=== PATIENT | female | born 1965 | race Caucasian/White ===

== ENCOUNTER 2018-10-16 19:45 | Observation (INO) ==
[2018-10-16 20:45] LABS: Basophils # (auto) 0.03 K/uL (0-0.2); Basophils % (auto) 0.4 %; Eosinophils # (auto) 0.19 K/uL (0-0.5); Eosinophils % (auto) 2.5 %; Hematocrit (blood only) 42.9 % (37-47); Hemoglobin 14.9 g/dL (12.0-16.0); Immature Granulocytes # (auto) 0.01 K/uL (0.00-0.02); Immature Granulocytes % (auto) 0.1 %; Lymphocytes # (auto) 2.71 K/uL (1.2-3.4); Lymphocytes % (auto) 35.7 %; Mean Corpuscular Hgb Conc 34.7 g/dL (32-36); Mean Corpuscular Volume 88.6 fL (80-100); Mean Platelet Volume 11.2 fL (7.4-10.4); Monocytes # (auto) 0.62 K/uL (0.11-0.59); Monocytes % (auto) 8.2 %; Neutrophils # (auto) 4.04 K/uL (1.4-6.5); Neutrophils % (auto) 53.1 %; Platelet Count 248 K/uL (130-400); RDW Coefficient of Variation 12.8 % (11.5-14.5); Red Blood Count 4.84 M/uL (4.2-5.4)
[2018-10-16 20:48] LABS: D Dimer 220 ug/L FEU (0-500)
[2018-10-16 20:53] LABS: Alanine Aminotransferase 44 U/L (12-78); Albumin Level 4.4 gm/dl (3.4-5.0); Aspartate Aminotransferase 20 U/L (15-37); BUN Creatinine Ratio 13.9 (10-20); Blood Urea Nitrogen 10 mg/dl (7-18); Calcium 9.7 mg/dl (8.5-10.1); Carbon Dioxide 26 mmol/L (21-32); Chloride 105 mmol/L (98-107); Cholesterol 224 mg/dl (0-200); Creatinine Clr Calc Pharmacy 111.8 ml/min; Est GFR (African American) 109.7; Est GFR (Non-African American) 94.7; Glucose 93 mg/dl (70-99); Magnesium 2.4 mg/dl (1.8-2.4); Potassium 3.6 mmol/L (3.5-5.1); Sodium 140 mmol/L (136-145); Triglycerides 125 mg/dl (0-150); VLDL Cholesterol 25 mg/dl
--- NOTE | 2018-10-16 21:01 | XRay Report ---
XR chest 1V portable CLINICAL HISTORY: 53 years-old Female presenting with sob. TECHNIQUE: Portable upright AP view of the chest was obtained. COMPARISON: Chest CT from 2012. FINDINGS: Atherosclerosis of the aortic arch. Cardiac silhouette borderline enlarged. Minimal right basilar opa city may be present. No large effusion or pneumothorax. Osseous structures normal. Upper abdomen norm al. IMPRESSION: Evaluation degraded by body habitus and portable technique. This mildly limits diagnostic sensitivity the exam. 1. Borderline cardiomegaly. 2. Possible minimal right basilar atelectasis. Electronically signed by: Abraham Stokes M.D. 10/16/2018 9:00 PM
[2018-10-16 21:02] LABS: Albumin Globulin Ratio 1.5 (0.9-2); Alkaline Phosphatase 81 U/L (45-117); Bilirubin,Total 0.4 mg/dl (0.2-1); Chol HDL Ratio 5; HDL Cholesterol 46 mg/dl; LDL Cholesterol Calculated 153 mg/dl; NT Pro B Type Natriuretic Pept 42 pg/ml (0-900); Total Protein 7.4 gm/dl (6.4-8.2); Troponin I < 0.015 ng/ml (0-0.045)
[2018-10-16 21:35] LABS: Lyme Ab IgG w/WB Rflx Negative (Negative); Lyme Ab IgM w/WB Rflx Negative (Negative)
[2018-10-16] MEDS ORDERED: OPTIRAY 320 125ml IV PRN (21:58)
--- NOTE | 2018-10-16 22:26 | CT Scan Report ---
CT angio chest PE protocol CLINICAL HISTORY: 53 years-old Female presenting with shortness of breath, clinical concern for pulmo nary embolus. TECHNIQUE: Multidetector CT angiography of the chest was performed after administration of intravenou s contrast. 3-D volumetric and/or maximum intensity projection (MIP) images were subsequently reconst ructed for review. IV contrast: 116 mL of Optiray 320. One or more dose lowering techniques were used consistent with the principles of ALARA (as low as reasonably achievable), including automatic expos ure control, mA or kV adjustment to individual patient size, and/or use of iterative reconstruction. COMPARISON: 02/05/2012. CT DOSE (mGy.cm): The estimated cumulative dose is 543.64 mGycm. FINDINGS: Wallpaper Hanger Helper topogram: Unremarkable. Pulmonary vasculature: The study is adequate for assessment of the pulmonary vascular tree. No filling defect within the pul monary arteries to suggest embolus. Main pulmonary artery is not enlarged. No flattening of the inter ventricular septum. No intracardiac filling defect. No reflux of contrast into the hepatic veins. Remaining chest: Soft tissues: Normal thyroid and thoracic inlet. No axillary, supraclavicular, mediastinal, or hilar lymphadenopathy. Normal aorta. Mild multichamber enlargement of the heart. No pericardial or pleural effusion. Hepatic steatosis. Lungs and airways: No pneumothorax. Central airways patent. Pulmonary arteries are not significantly enlarged relative to adjacent bronchi. No interlobular septal thickening. Scattered bandlike opacitie s at the lung bases in the right middle lobe and lingula as well as in the lower lobes dependently, l ikely atelectasis. No other focal nodule or infiltrate. Musculoskeletal: Degenerative changes of the spine. IMPRESSION: 1. No evidence of pulmonary embolus. 2. Mild cardiomegaly. 3. Bibasilar atelectasis. No other evidence of acute intrathoracic pathology. Electronically signed by: Abraham Stokes M.D. 10/16/2018 10:25 PM
[2018-10-16] MEDS ORDERED: ALUMINUM/MAGNESIUM SUSP 30 ML UDC PO STA (22:34)
[2018-10-16] MEDS ORDERED: FAMOTIDINE 20MG/5ML IV PUSH IV STA (22:34)
--- NOTE | 2018-10-16 22:49 | Emergency Department Note ---
Entered by Sabina Mcdowell acting as a scribe for History of Present Illness General Chief complaint: Chest Pain Stated complaint: CHEST PAIN Time Seen by Provider: 10/16/18 19:53 Source: patient History of Present Illness Provider complaint: Chest Pain Onset (ago): week(s) 3 Location: chest Radiation: extremity (Left arm) Quality: + burning and + other (Pressure) Exacerbated By: + movement Associated symptoms: + shortness of breath and + other (Fatigued, calve pain) The patient is a 53 year old female who presents to the Emergency Room with complaints of burning chest pain that began 3 weeks ago. The patient states that she was at a doctors appointment and began feeling pressure in her left chest and shoulder that she described as feeling like "congestion." The patient reports that the pain is exacerbated by movement. The patient states that she has been experiencing shortness of breath, fatigue, and calve pain. The patient mentioned that her activity levels have been down and recently walking around the block makes her "winded." The patient reports that she has gained about 100 pounds in the last 13 years due to a sedentary lifestyle. The patient states that she has high anxiety but has never gotten shortness of breath this severe before. No recent travel, no recent illness. No new medications. Home Medications Home Medications Medication Instructions Recorded Confirmed Type escitalopram oxalate [Lexapro] 10 mg PO DAILY 10/16/18 10/16/18 History losartan-hydrochlorothiazide 1 tab PO DAILY 10/16/18 10/16/18 History naproxen sodium [Aleve] 220 - 440 mg PO DIRECTED PRN 10/16/18 10/16/18 History Allergies Allergy/AdvReac Type Severity Reaction Status Date / Time adhesive Allergy Intermediate SKIN Verified 10/16/18 20:53 IRRITATION, RASH, TEARS SKIN latex Allergy Intermediate SKIN Verified 10/16/18 20:50 IRRITATION, RASH, TEARS SKIN Past Med/Surg History Medical History No pertinent past medical history Family History Other Heart disease Social History Preferred Language: Irish Communication Ability: Effective 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 and A total of 10 systems reviewed and were otherwise negative Physical Exam Vital Signs Vital Signs - 24 hr 10/16/18 19:53 10/16/18 19:58 10/16/18 20:22 Temperature 36.8 C Temperature Source Oral Sepsis Recent Fever Within 48 Hours No Sepsis New/Unexplained Change in Mental Status No Sepsis Action Taken by Nursing No Action Required Pulse Rate 72 70 Pulse Rate [Apical] 69 80 Pulse Rhythm Regular Pulse Rhythm [Apical] Regular Regular Pulse Strength [Apical] Respiratory Rate 16 18 16 Respiratory Effort / Characteristics Non-Labored Spontaneous Non-Labored Spontaneous Non-Labored Spontaneous Respiratory Depth Normal Normal Normal Respiratory Pattern Regular Regular Blood Pressure 169/109 H Blood Pressure [Right Arm] 147/95 H 147/95 H Blood Pressure Mean 129 Blood Pressure Mean [Right Arm] 112 112 Blood Pressure Position [Right Arm] Pulse Oximetry 97 96 100 Oxygen Delivery Method Room Air Room Air 10/16/18 22:06 Temperature Temperature Source Sepsis Recent Fever Within 48 Hours Sepsis New/Unexplained Change in Mental Status Sepsis Action Taken by Nursing Pulse Rate Pulse Rate [Apical] 63 Pulse Rhythm Pulse Rhythm [Apical] Regular Pulse Strength [Apical] Normal Respiratory Rate 18 Respiratory Effort / Characteristics Non-Labored Spontaneous Respiratory Depth Normal Respiratory Pattern Regular Blood Pressure Blood Pressure [Right Arm] 139/93 Blood Pressure Mean Blood Pressure Mean [Right Arm] 108 Blood Pressure Position [Right Arm] Sitting Pulse Oximetry 95 Oxygen Delivery Method Room Air GENERAL: alert, uncomfortable-appearing, well nourished, no distress, non-toxic. Obese. EYE EXAM: normal conjunctiva, PERRL and EOM's grossly intact OROPHARYNX: no exudate, no erythema, lips, buccal mucosa, and tongue normal and mucous membranes are moist NECK: supple, no nuchal rigidity, no adenopathy, non-tender LUNGS: Clear to auscultation. Normal chest wall mechanics, no w/r/r HEART: no murmurs, S1 normal and S2 normal ABDOMEN: abdomen soft, non-tender, normo-active bowel sounds, no masses, no rebound or guarding. BACK: Back is symmetrical on inspection and there is no deformity, no midline tenderness, no CVA tenderness. SKIN: no rashes and no bruising UPPER EXTREMITIES: upper extremities are grossly normal. FROM, nml pulses b/l. LOWER EXTREMITIES: No pitting edema. FROM, nml pulses b/l. NEURO EXAM: Normal sensorium, cranial nerves II-XII grossly intact, normal speech, no gross weakness of arms, no gross weakness of legs. Course 1958: Past medical records reviewed. The patient was evaluated in room A03. A complete history and physical exam was performed. 2234: I reevaluated and discussed the test results with the patient. The patient understands and is in agreement with verbalized plan. 2248: I spoke with Dr. Curtis's about the patient's case and he will accept the patient for further evaluation. Administered Medications Discontinued Medications Al Hydrox/Mg Hydrox/Simethicone (Maalox) 15 ml PO NOW STA Stop: 10/16/18 22:35 Last Admin: 10/16/18 22:48 Dose: 15 ml Documented by: [id number] Aspirin (Ecotrin Ectab) 81 mg PO QAM [facility] Stop: 11/16/18 08:59 Last Admin: 10/17/18 13:25 Dose: 81 mg Documented by: [id number] Atropine Sulfate (Atropine Sulfate) Confirm Administered Dose 1 mg IV .STK-MED ONE Stop: 10/17/18 08:54 Last Admin: 10/17/18 09:42 Dose: 0.5 mg Documented by: [id number] Dobutamine HCl (Dobutrex) Confirm Administered Dose 250 mg IV .STK-MED ONE Stop: 10/17/18 08:54 Last Admin: 10/17/18 09:36 Dose: Not Given Documented by: [id number] Enoxaparin Sodium (Lovenox) 40 mg SQ QAM [facility] Stop: 11/16/18 08:59 Last Admin: 10/17/18 13:13 Dose: Not Given Documented by: [id number] Escitalopram Oxalate (Lexapro Tab) 10 mg PO DAILY NERY Stop: 11/16/18 08:59 Last Admin: 10/17/18 13:25 Dose: 10 mg Documented by: [id number] Famotidine (Pepcid 20mg Iv Push) 20 mg IV ONE STA Stop: 10/16/18 22:35 Last Admin: 10/16/18 22:48 Dose: 20 mg Documented by: [id number] Fentanyl Citrate (Fentanyl Citrate) Confirm Administered Dose 100 mcg .ROUTE .STK-MED ONE Stop: 10/17/18 11:52 Last Admin: 10/17/18 14:50 Dose: Not Given Documented by: [id number] Heparin Sodium (Porcine) (Heparin Iv Bolus (Side Framer Use Only)) Confirm Administered Dose 10,000 units .ROUTE .STK-MED ONE Stop: 10/17/18 11:51 Last Admin: 10/17/18 14:49 Dose: Not Given Documented by: [id number] Heparin Sodium/Sodium Chloride (Heparin/Nss 1000 Unit/500ml Flush Bag) Confirm Administered Dose 3,000 units IV .STK-MED ONE Stop: 10/17/18 11:51 Last Admin: 10/17/18 14:49 Dose: Not Given Documented by: [id number] Dextrose/Lactated Ringer's (D5w And Lactated Ringers) 1,000 mls @ 40 mls/hr IV .Q24H NERY Stop: 11/16/18 01:05 Last Infusion: 10/17/18 14:57 Dose: 0 mls/hr Documented by: [id number] Infusion: 10/17/18 08:40 Dose: 0 mls/hr Documented by: [id number] Admin: 10/17/18 01:51 Dose: 40 mls/hr Documented by: [id number] Sodium Chloride (Nss 1000ml) 1,000 mls @ 100 mls/hr IV .Q10H NERY Stop: 10/17/18 17:59 Last Admin: 10/17/18 13:14 Dose: 100 mls/hr Documented by: [id number] Ioversol (Optiray 320 125ml) 116 ml IV ONCE PRN PRN Reason: Interaction Checking Stop: 10/20/18 21:57 Last Admin: 10/16/18 21:59 Dose: 116 ml Documented by: [id number] Losartan Potassium (Cozaar) 50 mg PO QAM NERY Stop: 11/16/18 08:59 Last Admin: 10/17/18 13:25 Dose: 50 mg Documented by: [id number] Metoprolol Tartrate (Lopressor) Confirm Administered Dose 10 mg IV .STK-MED ONE Stop: 10/17/18 08:54 Last Admin: 10/17/18 10:31 Dose: Not Given Documented by: [id number] Midazolam HCl (Versed) Confirm Administered Dose 2 mg .ROUTE .STK-MED ONE Stop: 10/17/18 11:52 Last Admin: 10/17/18 14:52 Dose: Not Given Documented by: [id number] Nicardipine HCl (Cardene) Confirm Administered Dose 25 mg .ROUTE .STK-MED ONE Stop: 10/17/18 11:51 Last Admin: 10/17/18 14:48 Dose: Not Given Documented by: [id number] Nitroglycerin (Nitrostat) 0.4 mg SL UD PRN PRN Reason: Chest Pain Stop: 11/16/18 01:05 Last Admin: 10/17/18 09:57 Dose: 0.4 mg Documented by: [id number] Nitroglycerin (Nitrostat) Confirm Administered Dose 0.4 mg .ROUTE .STK-MED ONE Stop: 10/17/18 09:53 Last Admin: 10/17/18 14:48 Dose: Not Given Documented by: [id number] Nitroglycerin/Dextrose (Nitroglycerin/D5w 100 Mcg/Ml 20ml Syringe) Confirm Administered Dose 2,000 mcg .ROUTE .STK-MED ONE Stop: 10/17/18 11:52 Last Admin: 10/17/18 14:50 Dose: Not Given Documented by: [id number] Perflutren Lipid Microsphere (Definity) 2 ml IV ONCE ONE Stop: 10/17/18 10:30 Last Admin: 10/17/18 10:29 Dose: 2 ml Documented by: [id number] Medical Decision Making Differential Diagnosis Differential diagnosis: Etiologies such as infections, reactive airway disease, COPD, pneumonia, pleural effusion, pulmonary edema, ARDS, pneumothorax, CHF, cardiac ischemia, cardiac tamponade, dysrhythmia, anemia, pulmonary embolism, musculoskeletal, gastrointestinal process, as well as others were entertained. Medical Records Attestation: I reviewed the patient's medical records. Home Medications Current Medication List: was personally reviewed by me Laboratory Data Attestation: I reviewed the patient's lab results. Result diagrams: 10/17/18 04:01 10/16/18 19:49 Lab Results 10/16/18 10/16/18 10/16/18 Range/Units 19:49 19:49 19:49 WBC 7.60 (4.8-10.8) K/uL RBC 4.84 (4.2-5.4) M/uL Hgb 14.9 (12.0-16.0) g/dL Hct 42.9 (37-47) % MCV 88.6 (80-100) fL MCH 30.8 (25-34) pg MCHC 34.7 (32-36) g/dL RDW Std Deviation 41.0 (36.4-46.3) fL RDW Coeff of [place]ore[place] 12.8 (11.5-14.5) % Plt Count 248 (130-400) K/uL MPV 11.2 H (7.4-10.4) fL Immature Gran % (Auto) 0.1 % Neut % (Auto) 53.1 % Lymph % (Auto) 35.7 % Bailey % (Auto) 8.2 % Eos % (Auto) 2.5 % Baso % (Auto) 0.4 % Immature Gran # (Auto) 0.01 (0.00-0.02) K/uL Neut # (Auto) 4.04 (1.4-6.5) K/uL Lymph # (Auto) 2.71 (1.2-3.4) K/uL Bailey # (Auto) 0.62 H (0.11-0.59) K/uL Eos # (Auto) 0.19 (0-0.5) K/uL Baso # (Auto) 0.03 (0-0.2) K/uL D-Dimer 220 (0-500) ug/L FEU Sodium 140 (136-145) mmol/L Potassium 3.6 (3.5-5.1) mmol/L Chloride 105 (98-107) mmol/L Carbon Dioxide 26 (21-32) mmol/L Anion Gap 9.0 (3-11) BUN 10 (7-18) mg/dl Creatinine 0.73 (0.6-1.2) mg/dl Est Cr Clr Drug Dosing 111.8 ml/min Est GFR ( Amer) 109.7 Est GFR (Non-Af Amer) 94.7 BUN/Creatinine Ratio 13.9 (10-20) Glucose 93 (70-99) mg/dl Calcium 9.7 (8.5-10.1) mg/dl Magnesium 2.4 (1.8-2.4) mg/dl Total Bilirubin 0.4 (0.2-1) mg/dl AST 20 (15-37) U/L ALT 44 (12-78) U/L Alkaline Phosphatase 81 (45-117) U/L Troponin I < 0.015 (0-0.045) ng/ml NT-Pro-B Natriuret Pep 42 (0-900) pg/ml Total Protein 7.4 (6.4-8.2) gm/dl Albumin 4.4 (3.4-5.0) gm/dl Globulin 3.0 (2.5-4.0) gm/dl Albumin/Globulin Ratio 1.5 (0.9-2) Triglycerides 125 (0-150) mg/dl Cholesterol 224 H (0-200) mg/dl LDL Cholesterol, Calc 153 mg/dl VLDL Cholesterol, Calc 25 mg/dl HDL Cholesterol 46 mg/dl Cholesterol/HDL Ratio 5 Lipase 116 (73-393) U/L TSH 2.990 (0.300-4.500) uIu/ml Lyme Disease IgG Ab (Negative) Lyme Disease IgM Ab (Negative) 10/16/18 10/16/18 Range/Units 19:49 23:12 WBC (4.8-10.8) K/uL RBC (4.2-5.4) M/uL Hgb (12.0-16.0) g/dL Hct (37-47) % MCV (80-100) fL MCH (25-34) pg MCHC (32-36) g/dL RDW Std Deviation (36.4-46.3) fL RDW Coeff of Lorena (11.5-14.5) % Plt Count (130-400) K/uL MPV (7.4-10.4) fL Immature Gran % (Auto) % Neut % (Auto) % Lymph % (Auto) % Bailey % (Auto) % Eos % (Auto) % Baso % (Auto) % Immature Gran # (Auto) (0.00-0.02) K/uL Neut # (Auto) (1.4-6.5) K/uL Lymph # (Auto) (1.2-3.4) K/uL Bailey # (Auto) (0.11-0.59) K/uL Eos # (Auto) (0-0.5) K/uL Baso # (Auto) (0-0.2) K/uL D-Dimer (0-500) ug/L FEU Sodium (136-145) mmol/L Potassium (3.5-5.1) mmol/L Chloride (98-107) mmol/L Carbon Dioxide (21-32) mmol/L Anion Gap (3-11) BUN (7-18) mg/dl Creatinine (0.6-1.2) mg/dl Est Cr Clr Drug Dosing ml/min Est GFR ( Amer) Est GFR (Non-Af Amer) BUN/Creatinine Ratio (10-20) Glucose (70-99) mg/dl Calcium (8.5-10.1) mg/dl Magnesium (1.8-2.4) mg/dl Total Bilirubin (0.2-1) mg/dl AST (15-37) U/L ALT (12-78) U/L Alkaline Phosphatase (45-117) U/L Troponin I < 0.015 (0-0.045) ng/ml NT-Pro-B Natriuret Pep (0-900) pg/ml Total Protein (6.4-8.2) gm/dl Albumin (3.4-5.0) gm/dl Globulin (2.5-4.0) gm/dl Albumin/Globulin Ratio (0.9-2) Triglycerides (0-150) mg/dl Cholesterol (0-200) mg/dl LDL Cholesterol, Calc mg/dl VLDL Cholesterol, Calc mg/dl HDL Cholesterol mg/dl Cholesterol/HDL Ratio Lipase (73-393) U/L TSH (0.300-4.500) uIu/ml Lyme Disease IgG Ab Negative (Negative) Lyme Disease IgM Ab Negative (Negative) Imaging Data Radiologist's Impression: Radiology results as stated below per my review and the radiologist's interpretation: XR chest 1V portable CLINICAL HISTORY: 53 years-old Female presenting with sob. TECHNIQUE: Portable upright AP view of the chest was obtained. COMPARISON: Chest CT from 2012. FINDINGS: Atherosclerosis of the aortic arch. Cardiac silhouette borderline enlarged. Minimal right basilar opacity may be present. No large effusion or pneumothorax. Osseous structures normal. Upper abdomen normal. IMPRESSION: Evaluation degraded by body habitus and portable technique. This mildly limits diagnostic sensitivity the exam. 1. Borderline cardiomegaly. 2. Possible minimal right basilar atelectasis. Electronically signed by: Abraham Stokes M.D. 10/16/2018 9:[address] angio chest PE protocol CLINICAL HISTORY: 53 years-old Female presenting with shortness of breath, clinical concern for pulmonary embolus. TECHNIQUE: Multidetector CT angiography of the chest was performed after admi nistration of intravenous contrast. 3-D volumetric and/or maximum intensity projection (MIP) images were subsequently reconstructed for review. IV contrast: 116 mL of Optiray 320. One or more dose lowering techniques were used consistent with the principles of ALARA (as low as reasonably achievable), including automatic exposure control, mA or kV adjustment to individual patient size, and/or use of iterative reconstruction. COMPARISON: 02/05/2012. CT DOSE (mGy.cm): The estimated cumulative dose is 543.64 mGycm. FINDINGS: Pediatric Immunologist topogram: Unremarkable. Pulmonary vasculature: The study is adequate for assessment of the pulmonary vascular tree. No filling defect within the pulmonary arteries to suggest embolus. Main pulmonary artery is not enlarged. No flattening of the interventricular septum. No intracardiac filling defect. No reflux of contrast into the hepatic veins. Remaining chest: Soft tissues: Normal thyroid and thoracic inlet. No axillary, supraclavicular, mediastinal, or hilar lymphadenopathy. Normal aorta. Mild multichamber enlargement of the heart. No pericardial or pleural effusion. Hepatic steatosis. Lungs and airways: No pneumothorax. Central airways patent. Pulmonary arteries are not significantly enlarged relative to adjacent bronchi. No interlobular septal thickening. Scattered bandlike opacities at the lung bases in the right middle lobe and lingula as well as in the lower lobes dependently, likely atelectasis. No other focal nodule or infiltrate. Musculoskeletal: Degenerative changes of the spine. IMPRESSION: 1. No evidence of pulmonary embolus. 2. Mild cardiomegaly. 3. Bibasilar atelectasis. No other evidence of acute intrathoracic pathology. Electronically signed by: Abraham Stokes M.D. 10/16/2018 10:25 PM ECG Data Attestation: I personally reviewed and interpreted this ECG as follows: Indication: SOB/dyspnea Rate (beats per minute): 65 Rhythm: normal sinus Findings: + other (Normal axis, normal intervals); no PVC and no acute ischemic change Blood Pressure Blood Pressure Findings: Elevated blood pressure Blood Pressure Disposition: Referred to patients primary care provider MDM Narrative Heart score 4 Patient here uncomfortable appearing with concerning story for exertional symptoms. Patient also with significant past family history of coronary artery disease. Patient's labs and imaging here are reassuring and patient was hemodynamically stable throughout. Troponin negative and EKG did not show any acute changes. However, given patient's risk factors and family history, case was discussed with hospitalist for additional evaluation and management. Patient symptoms were improved here with additional medications. No evidence of hypertensive urgency/emergency. No evidence of PE or other acute vascular etiology. No evidence of infectious etiology. I do not suspect perforation or GI bleed. Impression & Plan Atypical chest pain, Dyspnea on exertion, Fatigue Discharge Plan Visit Data *Final* Discharge Date/Time: 10/17/18 00:41 Chief Complaint: Chest Pain Stated Complaint: CHEST PAIN ED Provider: Julia Fuentes Discharge Problem: Atypical chest pain, Dyspnea on exertion, Fatigue Patient Disposition: Admitted As Inpatient Condition: Good Discharge Instructions Interventions: ED Discharge Assessment Last Done: 10/17/18 00:41 Discharge Problem: Fatigue Qualifiers: Fatigue type: due to excessive exertion Encounter type: initial encounter Qualified Code(s): T73.3XXA - Exhaustion due to excessive exertion, initial encounter The scribe's documentation has been prepared under my direction and personally reviewed by me in its entirety. I confirm that the note above accurately reflects all work, treatment, procedures, and medical decision making performed by me.
--- NOTE | 2018-10-16 23:22 | History & Physical Report ---
Date of Service October 16, 2018 Assessment & Plan (1) Chest pain: ? Secondary to L shoulder pathology Anxiety contributory Rule out ACS given risk factors and exertional S OB symptoms hypertension, slightly elevated upon arrival at the ER Hyperlipidemia, currently not on statin Rx as per patient preference as per records anxiety/mood disorder past tobacco abuse OBS PCU Left shoulder x-ray Aspirin for CAD prevention until ACS ruled out Dobutamine stress echo if a.m. troponin within normal limits DVT prophylaxis. Lovenox subcu Full code. History of Present Illness Chief Complaint: Chest pain, S OB Primary Care Provider: Leander Nuñez MD History obtained from patient, family, and records. Medical history significant for hypertension, hyperlipidemia, anxiety/mood disorder, RLS, past tobacco abuse. 3 weeks history of intermittent substernal discomfort occasionally going to the left shoulder with some shortness of breath on exertion. Somewhat worsened with movement. No unusual cough symptoms. Different from usual heartburn episodes. Patient thinks anxiety from knee issues causing chest pain. Patient not sure if nitroglycerin worked for her chest pain. Patient currently comfortable at the emergency room. 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 Allergies Allergy/AdvReac Type Severity Reaction Status Date / Time adhesive Allergy Intermediate SKIN Verified 10/16/18 20:53 IRRITATION, RASH, TEARS SKIN latex Allergy Intermediate SKIN Verified 10/16/18 20:50 IRRITATION, RASH, TEARS SKIN Home Medications Home Medications Medication Instructions Recorded Confirmed Type escitalopram oxalate [Lexapro] 10 mg PO DAILY 10/16/18 10/16/18 History losartan-hydrochlorothiazide 1 tab PO DAILY 10/16/18 10/16/18 History naproxen sodium [Aleve] 220 - 440 mg PO DIRECTED PRN 10/16/18 10/16/18 History Past Med/Surg History Medical History No pertinent past medical history Family History Other Heart disease Social History Preferred Language: Armenian Communication Ability: Effective Facilities Flight Check Pilot Required: No Current Living Situation: Spouse Other Information That Helps Us Care for You: No Feels Safe at Home: No Is there a partner from a previous relationship who is making you feel unsafe now?: No Any Concerns about Your Family Situation: No Would You Like to Speak to Someone About Your Situation: No Safety Concerns: Feels Safe At This Time Smoking Status: Former smoker Second Hand Exposure: Yes ; Hx Alcohol Use: No Hx Substance Use: No Review of Systems Review of Systems: As per HPI, all 10 systems reviewed, all other ROS negative Physical Exam Physical Exam: GENERAL: Comfortable, slightly anxious, obese, no respiratory distress SKIN: Normal color, warm HEENT: [place] palpebral conjunctivae, no ptosis, dry buccal mucosa NECK : Supple, short neck, no tenderness CHEST : CTA, no tenderness HEART : RRR, no obvious murmurs ABDOMEN: Some distention, nontender EXTREMITIES : Chronic LE swelling, chronic bilateral knee tenderness; minimal left shoulder tenderness, no other conspicuous deformities noted NEUROLOGIC : Coherent, no facial asymmetry, no other gross focality Results & Data Vital Signs (Past 12 Hours) Vital Signs Temp Pulse Pulse Resp BP BP Pulse Ox 10/16/18 22:48 77 16 143/103 H 96 10/16/18 22:06 63 18 139/93 95 10/16/18 20:22 80 16 147/95 H 100 10/16/18 19:58 70 69 18 147/95 H 96 10/16/18 19:53 36.8 C 72 16 169/109 H 97 Laboratory Results Laboratory Results WBC 7.60 K/uL (4.8-10.8) 10/16/18 19:49 RBC 4.84 M/uL (4.2-5.4) 10/16/18 19:49 Hgb 14.9 g/dL (12.0-16.0) 10/16/18 19:49 Hct 42.9 % (37-47) 10/16/18 19:49 MCV 88.6 fL (80-100) 10/16/18 19:49 MCH 30.8 pg (25-34) 10/16/18 19:49 MCHC 34.7 g/dL (32-36) 10/16/18 19:49 RDW Std Deviation 41.0 fL (36.4-46.3) 10/16/18 19:49 RDW Coeff of [place] 12.8 % (11.5-14.5) 10/16/18 19:49 Plt Count 248 K/uL (130-400) 10/16/18 19:49 MPV 11.2 fL (7.4-10.4) H 10/16/18 19:49 Immature Gran % (Auto) 0.1 % 10/16/18 19:49 Neut % (Auto) 53.1 % 10/16/18 19:49 Lymph % (Auto) 35.7 % 10/16/18 19:49 [place] % (Auto) 8.2 % 10/16/18 19:49 Eos % (Auto) 2.5 % 10/16/18 19:49 Baso % (Auto) 0.4 % 10/16/18 19:49 Immature Gran # (Auto) 0.01 K/uL (0.00-0.02) 10/16/18 19:49 Neut # (Auto) 4.04 K/uL (1.4-6.5) 10/16/18 19:49 Lymph # (Auto) 2.71 K/uL (1.2-3.4) 10/16/18 19:49 [place] # (Auto) 0.62 K/uL (0.11-0.59) H 10/16/18 19:49 Eos # (Auto) 0.19 K/uL (0-0.5) 10/16/18 19:49 Baso # (Auto) 0.03 K/uL (0-0.2) 10/16/18 19:49 D-Dimer 220 ug/L FEU (0-500) 10/16/18 19:49 Sodium 140 mmol/L (136-145) 10/16/18 19:49 Potassium 3.6 mmol/L (3.5-5.1) 10/16/18 19:49 Chloride 105 mmol/L (98-107) 10/16/18 19:49 Carbon Dioxide 26 mmol/L (21-32) 10/16/18 19:49 Anion Gap 9.0 (3-11) 10/16/18 19:49 BUN 10 mg/dl (7-18) 10/16/18 19:49 Creatinine 0.73 mg/dl (0.6-1.2) 10/16/18 19:49 Est Cr Clr Drug Dosing 111.8 ml/min 10/16/18 19:49 Est GFR ( Amer) 109.7 10/16/18 19:49 Est GFR (Non-Af Amer) 94.7 10/16/18 19:49 BUN/Creatinine Ratio 13.9 (10-20) 10/16/18 19:49 Glucose 93 mg/dl (70-99) 10/16/18 19:49 Calcium 9.7 mg/dl (8.5-10.1) 10/16/18 19:49 Magnesium 2.4 mg/dl (1.8-2.4) 10/16/18 19:49 Total Bilirubin 0.4 mg/dl (0.2-1) 10/16/18 19:49 AST 20 U/L (15-37) 10/16/18 19:49 ALT 44 U/L (12-78) 10/16/18 19:49 Alkaline Phosphatase 81 U/L (45-117) 10/16/18 19:49 Troponin I < 0.015 ng/ml (0-0.045) 10/16/18 19:49 NT-Pro-B Natriuret Pep 42 pg/ml (0-900) 10/16/18 19:49 Total Protein 7.4 gm/dl (6.4-8.2) 10/16/18 19:49 Albumin 4.4 gm/dl (3.4-5.0) 10/16/18 19:49 Globulin 3.0 gm/dl (2.5-4.0) 10/16/18 19:49 Albumin/Globulin Ratio 1.5 (0.9-2) 10/16/18 19:49 Triglycerides 125 mg/dl (0-150) 10/16/18 19:49 Cholesterol 224 mg/dl (0-200) H 10/16/18 19:49 LDL Cholesterol, Calc 153 mg/dl 10/16/18 19:49 VLDL Cholesterol, Calc 25 mg/dl 10/16/18 19:49 HDL Cholesterol 46 mg/dl 10/16/18 19:49 Cholesterol/HDL Ratio 5 10/16/18 19:49 Lipase 116 U/L (73-393) 10/16/18 19:49 TSH 2.990 uIu/ml (0.300-4.500) 10/16/18 19:49 Lyme Disease IgG Ab Negative (Negative) 10/16/18 19:49 Lyme Disease IgM Ab Negative (Negative) 10/16/18 19:[address] chest: 1. No evidence of pulmonary embolus. 2. Mild cardiomegaly. 3. Bibasilar atelectasis. No other evidence of acute intrathoracic pathology. EKG as per my interpretation rate 65, NSR, normal axis, incomplete RBBB, T wave flattening septal leads
[2018-10-17] MEDS ORDERED: NITROGLYCERIN SL 0.4 MG/TAB TAB SL PRN (01:06)
[2018-10-17] MEDS ORDERED: TRAMADOL HCL 50 MG TABLET PO PRN (01:06)
[2018-10-17] MEDS ORDERED: D5W AND LACTATED RINGERS 1,000 ML IV SCH (01:06)
[2018-10-17] MEDS ORDERED: LORazepam 0.5 MG/1 ML VIAL IV PRN (01:06)
[2018-10-17] MEDS ORDERED: MoRPHine SULFATE 4 MG/ML 1 ML CARP\\VIAL IV PRN (01:06)
[2018-10-17] MEDS ORDERED: ACETAMINOPHEN 325 MG TAB PO PRN (01:06)
[2018-10-17] MEDS ORDERED: PROMETHAZINE HCL 12.5 MG in SODIUM CHLORIDE 0.9% 50 ML IV PRN (01:06)
[2018-10-17 04:30] LABS: Basophils # (auto) 0.03 K/uL (0-0.2); Basophils % (auto) 0.4 %; Eosinophils # (auto) 0.19 K/uL (0-0.5); Eosinophils % (auto) 2.6 %; Hematocrit (blood only) 40.1 % (37-47); Hemoglobin 14.1 g/dL (12.0-16.0); Immature Granulocytes # (auto) 0.03 K/uL (0.00-0.02); Immature Granulocytes % (auto) 0.4 %; Lymphocytes # (auto) 2.44 K/uL (1.2-3.4); Lymphocytes % (auto) 33.3 %; Mean Corpuscular Hgb Conc 35.2 g/dL (32-36); Mean Corpuscular Volume 89.5 fL (80-100); Mean Platelet Volume 10.9 fL (7.4-10.4); Monocytes # (auto) 0.63 K/uL (0.11-0.59); Monocytes % (auto) 8.6 %; Neutrophils % (auto) 54.7 %; Platelet Count 198 K/uL (130-400); RDW Coefficient of Variation 12.9 % (11.5-14.5); RDW Standard Deviation 41.5 fL (36.4-46.3); Red Blood Count 4.48 M/uL (4.2-5.4); White Blood Count 7.32 K/uL (4.8-10.8)
[2018-10-17 04:39] LABS: Partial Thromboplastin Ratio 0.9; Partial Thromboplastin Time 24.1 Seconds (21.0-31.0)
--- NOTE | 2018-10-17 06:51 | XRay Report ---
XR shoulder LT min 2V routine CLINICAL HISTORY: L shoulder pain COMPARISON: None. DISCUSSION: No fractures or dislocations are visualized. No destructive lesions are visualized. Mild degenerative changes are present within the AC joint. IMPRESSION: No fractures identified. Electronically signed by: Nael Noel M.D. 10/17/2018 6:49 AM
[2018-10-17] MEDS ORDERED: DOBUTamine HCL 12.5 MG/ML 20 ML VIAL IV ONE (08:53)
[2018-10-17] MEDS ORDERED: ATROPINE SULFATE 0.1 MG/ML 10ML SYR IV ONE (08:53)
[2018-10-17] MEDS ORDERED: METOPROLOL TARTRATE 1 MG/ML VIAL IV ONE (08:53)
[2018-10-17] MEDS ORDERED: ENOXAPARIN INJ 40 MG/0.4 ML SYR SQ SCH (09:00)
[2018-10-17] MEDS ORDERED: ASPIRIN 325 MG ECTAB PO SCH (09:00)
[2018-10-17] MEDS ORDERED: ASPIRIN 81 MG ECTAB PO SCH (09:00)
[2018-10-17] MEDS ORDERED: ESCITALOPRAM OXALATE 10 MG TAB PO SCH (09:00)
[2018-10-17] MEDS ORDERED: LOSARTAN POTASSIUM 50 MG TAB PO SCH (09:00)
[2018-10-17] MEDS ORDERED: NITROGLYCERIN SL 0.4 MG/TAB TAB ONE (09:52)
[2018-10-17 10:28] LABS: Prothrombin Time 10.3 Seconds (9.0-12.0)
[2018-10-17] MEDS ORDERED: PERFLUTREN LIPID MICROSPHERE (DEFINITY) IV ONE (10:29)
--- NOTE | 2018-10-17 11:19 | Consultation Report ---
DATE OF CONSULTATION: 10/17/2018 INPATIENT CARDIOLOGY CONSULTATION CONSULTATION REQUESTED BY: Dr. Underwood. REASON FOR CONSULTATION: Chest pain and abnormal stress test. HISTORY OF PRESENT ILLNESS: Mrs. Angel is a very pleasant 53-year-old woman who presented to [facility] Emergency Department late in the evening of 10/16/2018 with complaints of chest discomfort. She states that for the last 3 weeks or so, she has been having intermittent sensations of indigestion. She states it is not really a pain, but she has a very uncomfortable sensation and almost burning sensation in the middle of her chest. It occurs with exertion and has recently started to occur at rest as well. When it does occur, she gets some numbness and tingling in her left shoulder and down her left arm. It is usually associated with shortness of breath and occasionally with nausea as well. She states over the last 3 weeks, it has been worsening and finally came into the Emergency Room to be evaluated. Initial evaluation in the ER was unremarkable. She was admitted to telemetry overnight. Again, unremarkable stay and a dobutamine stress echocardiogram was ordered. The dobutamine stress echocardiogram was able to reproduce her symptoms at target heart rate along with diffuse EKG changes and subtle inferior wall hypokinesis. The patient did receive nitroglycerin after the stress test with resolution of her discomfort. PAST SURGICAL HISTORY: 1. Breast biopsy. 2. Colonoscopies. MEDICAL ILLNESSES: 1. Hypertension. 2. Elevated BMI. 3. Anxiety. 4. Dyslipidemia. 5. Obstructive sleep apnea. 6. Strong family history of premature coronary artery disease. 7. Depression. 8. Restless leg. FAMILY HISTORY: Remarkable for father who had his first myocardial infarction at age 45. Her brother just underwent stenting in his mid 50s. SOCIAL HISTORY: The patient has a remote tobacco use history. Denies any alcohol or recreational drug use. She is and lives at home with her . 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 REVIEW OF SYSTEMS: As per HPI, all other review of systems is reviewed and negative at this time. ALLERGIES: 1. LATEX. 2. MELOXICAM. MEDICATIONS AN OUTPATIENT: 1. Hyzaar 50/12.5 mg daily. 2. Lorazepam p.r.n. 3. Lexapro daily. 4. Valtrex p.r.n. PHYSICAL EXAMINATION: VITAL SIGNS: Temperature 36.8, pulse 74, respiratory rate 12, blood pressure 123/84. GENERAL: Awake, alert, oriented x3, in no acute distress. HEENT: Normocephalic, atraumatic. Pupils equal, round, reactive to light and accommodation. Extraocular muscles intact. Anicteric sclerae. Moist mucous membranes. NECK: No JVD, no bruit. CARDIOVASCULAR: Regular. No S4. Normal S1 and S2. No S3. No murmurs, rubs or gallops. PULMONARY: Clear to auscultation bilaterally. No rales, rhonchi, or wheezing. ABDOMEN: Bowel sounds x4, soft. No rebound, guarding, or tenderness. No organomegaly. EXTREMITIES: No clubbing, cyanosis or edema. +2 pedal pulses bilaterally. SKIN: Warm and dry. TEST RESULTS: Initial EKG performed in the Emergency Department independently reviewed at this time shows normal sinus rhythm at 65 beats per minute, normal axis, incomplete right bundle branch block, no signs of active ischemia. LABORATORY STUDIES OF SIGNIFICANCE: Troponin negative x3. Total cholesterol 224, LDL 153, HDL 46, triglycerides of 125. Dobutamine stress echocardiogram was abnormal, ischemic with reproduction of symptoms along with diffuse ST segment depressions and inducible inferior wall hypokinesis. IMPRESSION: 1. Unstable angina with abnormal dobutamine stress echocardiogram. 2. Hypertension, controlled. 3. Dyslipidemia, uncontrolled. 4. Strong family history of premature coronary artery disease. RECOMMENDATIONS: It was my pleasure to see Mrs. Angel in consultation today. From a cardiac standpoint, the patient was counseled that given the fact that her chest pain was reproduced with stress testing along with ischemic EKG and wall motion abnormalities, I believe further evaluation is necessary. So at this time, the patient will undergo diagnostic cardiac catheterization and further recommendations to follow. The patient and her who I spoke with via phone are both in agreement with the above plan. ADDENDUM: Cardiac cath revealing normal coronary arteries. False positive stress echocardiogram. No further cardiac testing or follow up necessary. Recommend f/u with PCP to further evaluate symptoms. Ok to d/c to home from cardiac standpoint. MTDD
[2018-10-17] MEDS ORDERED: HEPARIN (PORCINE) 1000 UNIT/ML 10 ML (CATH LAB USE ONLY) ONE (11:50)
[2018-10-17] MEDS ORDERED: NiCARDipine HCL INJ 2.5 MG/ML 10 ML AMP ONE (11:50)
[2018-10-17] MEDS ORDERED: fentaNYL citrate 100 MCG/2 ML VIAL ONE (11:51)
[2018-10-17] MEDS ORDERED: MIDAZOLAM HCL 1 MG/ML 2ML VIAL ONE (11:51)
[2018-10-17] MEDS ORDERED: NITROGLYCERIN/D5W 100MCG/ML 20ML SYR ONE (11:51)
--- NOTE | 2018-10-17 12:18 | Hospitalist Progress Note ---
Date of Service October 17, 2018 Results & Data Vital Signs (Past 12 Hours) Vital Signs Temp Pulse Pulse Pulse Resp BP Pulse Ox 10/17/18 07:50 74 18 95 10/17/18 07:03 36.8 C 80 20 123/84 96 10/17/18 03:45 36.4 C L 60 18 138/84 98 10/17/18 01:45 69 13 95 10/17/18 01:39 36.6 C 66 16 138/91 96 10/17/18 00:41 69 94 10/17/18 00:31 67 16 139/91 98 Laboratory Results Short CBC 10/16/18 10/17/18 Range/Units 19:49 04:01 WBC 7.60 7.32 (4.8-10.8) K/uL Hgb 14.9 14.1 (12.0-16.0) g/dL Hct 42.9 40.1 (37-47) % Plt Count 248 198 (130-400) K/uL BMP 10/16/18 19:49 Sodium 140 Potassium 3.6 Chloride 105 Carbon Dioxide 26 BUN 10 Creatinine 0.73 Glucose 93 Calcium 9.7 Cardiac Enzymes 10/16/18 10/16/18 10/17/18 Range/Units 19:49 23:12 04:01 Troponin I < 0.015 < 0.015 < 0.015 (0-0.045) ng/ml Liver Function 10/16/18 Range/Units 19:49 Total Bilirubin 0.4 (0.2-1) mg/dl AST 20 (15-37) U/L ALT 44 (12-78) U/L Alkaline Phosphatase 81 (45-117) U/L Albumin 4.4 (3.4-5.0) gm/dl Medications Administered Current Inpatient Medications Acetaminophen (Tylenol) 650 mg PO Q4H PRN PRN Reason: Pain or Fever Stop: 11/16/18 01:05 Aspirin (Ecotrin Ectab) 81 mg PO QAM NERY Stop: 11/16/18 08:59 Enoxaparin Sodium (Lovenox) 40 mg SQ QAM NERY Stop: 11/16/18 08:59 Escitalopram Oxalate (Lexapro Tab) 10 mg PO DAILY NERY Stop: 11/16/18 08:59 Lorazepam (Ativan) 0.5 mg in 1 mls @ 1 mls/min IV Q4H PRN PRN Reason: Anxiety/Agitation Stop: 11/16/18 01:05 Promethazine HCl 12.5 mg/ (Sodium Chloride) 50.5 mls @ 202 mls/hr IV Q6H PRN PRN Reason: Nausea And Vomiting Stop: 11/16/18 01:05 Dextrose/Lactated Ringer's (D5w And Lactated Ringers) 1,000 mls @ 40 mls/hr IV .Q24H NERY Stop: 11/16/18 01:05 Last Infusion: 10/17/18 08:40 Dose: 0 mls/hr Documented by: Losartan Potassium (Cozaar) 50 mg PO QAM NERY Stop: 11/16/18 08:59 Morphine Sulfate (Morphine Sulfate) 4 mg IV Q4H PRN PRN Reason: Pain Stop: 10/31/18 01:05 Nitroglycerin (Nitrostat) 0.4 mg SL UD PRN PRN Reason: Chest Pain Stop: 11/16/18 01:05 Last Admin: 10/17/18 09:57 Dose: 0.4 mg Documented by: Tramadol HCl (Ultram) 25 - 50 mg PO Q4H PRN PRN Reason: Pain Stop: 11/16/18 01:05
--- NOTE | 2018-10-17 12:38 | Post Anesthesia Assessment ---
Date of Service October 17, 2018 Post Sedation Assessment Vital Signs Temp Pulse Pulse Pulse Resp BP BP 10/17/18 07:50 74 18 10/17/18 07:03 98.2 F 80 20 123/84 10/17/18 03:45 97.5 F L 60 18 138/84 10/17/18 01:45 69 13 10/17/18 01:39 97.9 F 66 16 138/91 10/17/18 00:41 69 10/17/18 00:31 67 16 139/91 10/16/18 22:48 77 16 143/103 H 10/16/18 22:06 63 18 139/93 10/16/18 20:22 80 16 147/95 H 10/16/18 19:58 70 69 18 147/95 H 10/16/18 19:53 98.2 F 72 16 169/109 H Pulse Ox 10/17/18 07:50 95 10/17/18 07:03 96 10/17/18 03:45 98 10/17/18 01:45 95 10/17/18 01:39 96 10/17/18 00:41 94 10/17/18 00:31 98 10/16/18 22:48 96 10/16/18 22:06 95 10/16/18 20:22 100 10/16/18 19:58 96 10/16/18 19:53 97 Recovery Score Activity: Moves 4 extremities Respiration: Deep Breath/Cough Circulation: +/-20% PreAnes Value Consciousness: Fully Awake Oxygen Saturation: O2 needed for >90% Discharge Sedation Level of Care: Fast Track Phase II Post Sedation Plan On clinical assessment, the patient appears to have tolerated the sedation without complications. Patient is recovering as anticipated. Patient will continue to be monitored by nursing and may be discharged when sedation discharge criteria are met per below protocol. Upon Completions of procedure and additional 15 minutes continue every 5 minute vital signs and the P.A.R. score; then discharge to a Phase I or Fast Track to Phase II per the following guidelines: * Discharge Patient to appropriate Phase II area if PAR is 8 or greater or return to pre- procedure baseline. The post - procedure orders will be as directed. * If PAR score is less than 8 or not return to pre-procedure baseline then patient will follow Phase I monitoring till PAR is reached for Phase II. The Phase I may be done in procedure room or may call to secure a Phase I area. * If naloxone or flumazenil are used for reversal, hold in Phase I for continued monitoring from when last reversal dose was given for a minimum of 60 minutes or longer pending the nurse and/or physician discretion of patient condition before discharge to Phase II. Please call the Sedation Physician to re-evaluate and complete post-note for discharge to Phase II area. Do NOT discharge from procedure sedation or Phase 1 until post- sedation evaluation note is complete by procedure /sedation MD Sedation Discharge Instructions to be given to the patient at discharge to home.
--- NOTE | 2018-10-17 12:38 | Pre Anesthesia Assessment ---
Date of Service October 17, 2018 Pre Sedation Assessment Vital Signs Temp Pulse Pulse Pulse Resp BP BP 10/17/18 07:50 74 18 10/17/18 07:03 98.2 F 80 20 123/84 10/17/18 03:45 97.5 F L 60 18 138/84 10/17/18 01:45 69 13 10/17/18 01:39 97.9 F 66 16 138/91 10/17/18 00:41 69 10/17/18 00:31 67 16 139/91 10/16/18 22:48 77 16 143/103 H 10/16/18 22:06 63 18 139/93 10/16/18 20:22 80 16 147/95 H 10/16/18 19:58 70 69 18 147/95 H 10/16/18 19:53 98.2 F 72 16 169/109 H Pulse Ox 10/17/18 07:50 95 10/17/18 07:03 96 10/17/18 03:45 98 10/17/18 01:45 95 10/17/18 01:39 96 10/17/18 00:41 94 10/17/18 00:31 98 10/16/18 22:48 96 10/16/18 22:06 95 10/16/18 20:22 100 10/16/18 19:58 96 10/16/18 19:53 97 Cardiovascular RRR, no murmur, no edema Respiratory normal respiratory effort, lungs clear to auscultation Pre-Sedation Airway Assessment Smoking Status: Former smoker Hx Sleep Apnea: Yes Hx Difficult Intubation: No Short, Thick Neck: Yes Thyromental Distance: < 3.5 Finger Breadths Oral Cavity: + WNL Mallampati Class: III ASA: ASA3 NPO Status Date of Last Intake of Fluids: 10/16/18 Time of Last Intake of Fluids: 23:00 Date of Last Intake of Solid Food: 10/16/18 Time of Last Intake of Solid Foods: 23:00 Procedure Planning Contraindications for Sedation: none Current Medications Reviewed: Yes Notes The planned sedation has been discussed with the patient. Informed Consent was obtained. I have identified the patient, determined the appropriateness of sedation and have assessed the patient immediately prior to the procedure. All medicine(s) and interventions are by my order.
--- NOTE | 2018-10-17 12:47 | Cardiac Catheterization ---
[facility] Data: Sld Educational Aide Cardiac Status Clinical evaluation leading to the procedure CAD Presenation: Positive Stress Test Anginal Classification: CCS III Heart Failure: No Cardiogenic Shock within 24 Hours: No Cardiac Arrest within 24 Hours: No Imaging Studies Past 6 Months: Yes Stress Studies Past 6 Months: Yes Stress Echocardiogram: Yes - Positive Diagnostic Physicians Name: Sav Damon MD Status: Elective Closure Device Percutaneous Entry Location: Radial Closure Device: Radial Band Recommendations: Medical Therapy and/or Counseling Intraprocedure Events Significant Disection: No Perforation: No Cardiac Cath Procedure Full Procedure Date October 17, 2018 Pre-Procedure Diagnosis Pre-Procedure Diagnosis: Positive Stress Test AUC Score AUC Score: 7 Post-Procedure Diagnosis Post-Procedure Diagnosis: Normal Coronary Arteries, Normal Intracardiac Pressures and Elevated Intracardiac Pressures Procedure(s) Performed Procedure(s) Performed: Coronary Angiography, Left Heart Cath and LV Angiography Hotel Attendant Sav Damon MD Hot Knife Cutter(s) Arline Estimated Blood Loss Estimated Blood Loss: 5 Medication(s) Medication(s): Clopidogrel, Fentanyl, Heparin, Lidocaine 1%, Nicardipine, Nitroglycerin and Versed Summary of Findings Indication: Abnormal stress test Access: 6 Fr right radial artery Catheters: [place], pigtail Findings: LM -moderate caliber vessel, angiographically normal LAD -moderate caliber vessel, intragraft be normal, tapers to apex. Gives off to moderate caliber diagonals without significant disease. Circumflexmoderate caliber vessel angiographically normal, gives off to OM's without significant disease. RCA -large caliber vessel, dominant, no significant disease LVEDP - 21 [id number] to 70%, no wall motion normalities Arterial Closure: TR band Summary: 1. Angiographically normal coronary arteries 2. Mildly elevated intracardiac filling pressures 3. Normal LV systolic function Recommendations: Continued ASCVD risk factor modification Further evaluation for noncardiac causes of chest pain per Dr. Knowles. Hemodynamics Rest Ao:: 99/58/77 Final Ao: 115/66/68 LV: 123/21 Recommendations Recommendations: Medical Therapy and/or Counseling Specimens Specimens: None Radiation Exposure (mGy) 1075 Contrast (mls) 70 Fluids (cc crystalloids) Fluids (cc crystalloids): 45 Drains Drains: none Anesthesia moderate Procedural Complication(s) None Disposition Recovery Room\PACU
[2018-10-17] MEDS ORDERED: SODIUM CHLORIDE 0.9% 1000ML 1,000 ML IV SCH (13:00)
--- NOTE | 2018-10-17 15:55 | Discharge Summary ---
Date of Service October 17, 2018 Admission HPI Per Admitting Provider History obtained from patient, family, and records. Medical history significant for hypertension, hyperlipidemia, anxiety/mood disorder, RLS, past tobacco abuse. 3 weeks history of intermittent substernal discomfort occasionally going to the left shoulder with some shortness of breath on exertion. Somewhat worsened with movement. No unusual cough symptoms. Different from usual heartburn episodes. Patient thinks anxiety from knee issues causing chest pain. Patient not sure if nitroglycerin worked for her chest pain. Patient currently comfortable at the emergency room. 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 Admission Exam Per Admitting Provider GENERAL: Comfortable, slightly anxious, obese, no respiratory distress SKIN: Normal color, warm HEENT: [place] palpebral conjunctivae, no ptosis, dry buccal mucosa NECK : Supple, short neck, no tenderness CHEST : CTA, no tenderness HEART : RRR, no obvious murmurs ABDOMEN: Some distention, nontender EXTREMITIES : Chronic LE swelling, chronic bilateral knee tenderness; minimal left shoulder tenderness, no other conspicuous deformities noted NEUROLOGIC : Coherent, no facial asymmetry, no other gross focality Principal Diagnosis Atypical chest pain shortness of breath with exertion fatigue Discharge Data Allergies Allergy/AdvReac Type Severity Reaction Status Date / Time adhesive Allergy Intermediate SKIN Verified 10/16/18 20:53 IRRITATION, RASH, TEARS SKIN latex Allergy Intermediate SKIN Verified 10/16/18 20:50 IRRITATION, RASH, TEARS SKIN Consultations 10/16/18 22:49 ED Decision to Admit Stat 10/17/18 09:52 Consult Cardiac Catheterization Routine 10/17/18 09:58 Consult Cardiology Routine Procedures Performed Operation Date: 10/17/18 11:00 Actual Procedures p Cath, Left with Cors and Vent - Gino Damon MD s Cineradiography w/Routine Exam - Gino Damon MD Ordered Studies 10/16/18 21:06 CT angio chest PE protocol Stat 10/17/18 11:24 CL Cath Imgs for PACS use only Routine Hospital Course (1) Atypical chest pain: (2) Dyspnea on exertion: (3) Weakness: 53-year-old female presented with atypical chest discomfort in addition to acute worsening of shortness of breath over the last 3 to 4 weeks. She was admitted to the Hospitalist service and troponin was trended overnight and negative. A dobutamine stress echo was performed the following morning and was able to reproduce her symptoms at target heart rate along with diffuse EKG changes and subtle inferior wall hypokinesis. Cardiology was consulted and she underwent a cardiac catheterization. Findings revealed normal coronaries with no significant disease. Ejection fraction was 60 to 70% with no wall motion abnormalities she was returned to the [facility] to recover. With angiographically normal coronary arteries she was considered safe for discharge. On further discussion she reports significant symptoms in the past 4 weeks related to shortness of breath and significant weakness and fatigue. She reported an increase in her appetite and overall weight gain with a normal TSH. She reports 30 minutes of morning stiffness which is better with motion in her elbows and knees consistent with osteoarthritis. She has no history of autoimmune disease in her family or personally. 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 she also reports an inability to climb stairs secondary to proximal muscle weakness. To investigate this further a CK was performed which was normal. Hemoglobin A1c was performed which was normal and acetylcholinesterase receptor antibody test was also performed which was pending at the time of discharge. Her weakness was not necessarily worse as the day progressed and she did not have ptosis, a common finding and myasthenia gravis, making this diagnosis less likely but possible. Additionally with her significant weakness, almost seeming to drive her shortness of breath with exertion, other neurologic or muscle disorders may need to be investigated further. Ultimately, all symptoms may be secondary to deconditioning, however, the acute nature of this in the last 4 weeks prompted the concern for further investigation. A vitamin D was checked and found to be low and supplementation was ordered. B12 and folate levels were normal. At time of discharge a [id number] examination was performed revealing asymptomatic patient who was hemodynamically stable and afebrile. Cardiac exam was normal revealing a normal S1 and S2 with no evidence of murmurs gallops or rubs. She had no peripheral edema. Lungs were clear to auscultation. She was sent home in stable condition with close primary care follow-up recommended. No further cardiac testing is necessary at this time. Total Time Total Time Spent Total Time Spent (In Minutes): 60 Total Time Includes: Examination of the Patient, Discharge Planning, Medication Reconciliation and Communication With Other Providers Discharge Plan Discharge Items Patient Disposition: Home - Self-Care Reason For Visit: CHEST PAIN Discharge Diagnosis: Atypical chest pain shortness of breath with exertion fatigue Condition on Discharge: Good Activity: Resume your previous activity Non-emergency contact: Primary Care Provider Call non-emergency contact if: you have any medication questions, your symptoms worsen, your pain is not controlled, your pain is worsening, your pain is unusual for you, your pain is concerning for you and you have a fever Follow-up/Referrals: Leander Nuñez MD [Primary Care Provider] - Diet: Regular Addtl Attending Provider Instructions: Please continue all medications as instructed on discharge list below. Please follow-up with your primary care physician regarding continued investigation of your shortness of breath. You are scheduled as follows: 10/23/2018 11:00 AM Inez Saini, [facility], [place] It was a pleasure taking care of you! Please call if you have any questions or problems. You can reach a [facility] hospitalist on duty at [facility] 24 hours a day by calling [phone]. Take care of yourself. Fawn Underwood, DO [facility] Hospitalist ACTIVITY RECOMMENDATIONS: Excess manipulation of the wrist should be avoided for the next 24-48 hours. * No lifting over 2 pounds (approximately a 1/2 gallon of milk) with the utilized arm for 24 hours. * No strenuous activity such as bowling or tennis for 3 days. * Keep the site of the procedure covered with a bandage for 24 hours. *You may shower the day after the procedure. Do not take a tub bath or submerge the puncture site in water for the next 3 days. *Do not operate any motorized equipment for 3 days. SPECIAL CARE INSTRUCTIONS: The site may be slightly bruised and sore following your procedure. Should any of the following occur, contact the Dr. who performed your procedure. 1. Redness/inflammation, swelling, chills, or fever, or colored drainage at procedure site within 3-7 days after your procedure. 2. Coldness, discoloration, ongoing numbness, severe pain, or swelling. Expect mild tingling of hand and tenderness at the puncture site for up to three days. If this persists beyond three days, or other symptoms develop, notify the DrRneetta who performed your procedure. BLEEDING: If the procedure site on your wrist begins to bleed, do not panic 1. Place 1 or 2 fingers firmly just slightly above the insertion site to stop the bleeding. You may be able to feel your pulse as you hold pressure. 2. Lift your finger after 5 minutes to see if the bleeding has stopped. 3. Once the bleeding has stopped, gently wipe the wrist area clean with a bandage. * If the bleeding from your wrist does not stop after 10 minutes, or if there is a large amount of bleeding or spurting, call 911 ([address] not drive yourself to the hospital). SKIN IRRITATION: * You may experience some redness and/or swelling in the area where radiation was administered. If any skin irritation occurs, please contact your family ph ysician. FOLLOW UP VISIT: Keep any scheduled doctor appointments. Pending Studies at Discharge: No Stand-Alone Forms: Call Back Authorization, [facility], Work/School Release (Inpt) Medications and DC Order Prescriptions: New ergocalciferol (vitamin D2) 50,000 unit capsule 50,000 units PO Q7D Qty: 12 RF: 0 Continued naproxen sodium [Aleve] 220 mg Tablet 220 - 440 mg PO DIRECTED PRN (Reason: Pain) RF: 0 losartan-hydrochlorothiazide 50-12.5 mg tablet 1 tab PO DAILY RF: 0 escitalopram oxalate [Lexapro] 10 mg Tablet 10 mg PO DAILY RF: 0 Discharge Orders: Discharge Order (Routine); Ordered 10/17/18 Ordered By: Fawn Underwood Admission Data Admit Date/Time: 10/16/18 23:24 Attending Provider: Fawn Underwood Admit Provider: Eulogio Romero Primary Care Provider: Leander Nuñez Other Providers: Eulogio Romero ; Gino Damon ; Valentín Knowles Other Interventions: Discharge Summary Assessment (RN) Last Done: 10/17/18 17:46 DC Date/Time DO NOT enter until pt leaves facility: 10/17/18 19:28
[2018-10-17 17:14] LABS: C Reactive Protein 1.9 mg/dl (0-0.29)
[2018-10-17 17:23] LABS: Folate (Folic Acid) 13.21 ng/ml (>5.38)
[2018-10-18 06:10] LABS: Estimated Average Glucose 108 mg/dl; Hemoglobin A1C 5.4 % (4.5-5.6)
--- NOTE | 2018-10-20 09:58 | Communication Note ---
Date of Service: October 20, 2018 Vitamin D deficiency noted on labwork. Ergocalciferol q7d x 12 weeks (35115 IU) was transmitted to pharmacy on file. I left message on patient's voicemail to pick this up. DO Kj
== END 2018-10-17 19:28 | disposition home or self-care (01) ==
LOC: 2S 19:45 → ED 19:45 → SUATTDRO 23:24 → 2S 10-17 00:41

== ENCOUNTER 2019-09-17 07:30 | Inpatient (IN) ==
--- NOTE | 2019-08-07 15:54 | PAT Medication Instructions ---
Medication Instructions Date of Service August 07, 2019 Home Medications escitalopram oxalate [Lexapro] 10 mg PO QAM losartan-hydrochlorothiazide 1 tab PO QAM Acid Manager Child 1 dose PO UD PRN acetaminophen [Tylenol Extra Strength] 500 mg PO UD PRN albuterol sulfate [ProAir HFA] 1 - 2 inh INHALATION UD PRN celecoxib [Celebrex] 200 mg PO DAILY cholecalciferol (vitamin D3) [Vitamin D3] 50 mcg PO Q2D lidocaine 1 patch TOPICAL UD PRN Continue as directed lidocaine 1 patch TOPICAL UD PRN (if needed) STOP taking 24 hours before surgery celecoxib [Celebrex] 200 mg PO DAILY DO NOT take the morning of surgery losartan-hydrochlorothiazide 1 tab PO QAM Acid Manager Child 1 dose PO UD PRN cholecalciferol (vitamin D3) [Vitamin D3] 50 mcg PO Q2D Take morning of surgery With a small sip of water, OTHERWISE NOTHING TO EAT OR DRINK AFTER MIDNIGHT: escitalopram oxalate [Lexapro] 10 mg PO QAM acetaminophen [Tylenol Extra Strength] 500 mg PO UD PRN (okay to take up to 4 hours prior to surgery if needed) albuterol sulfate [ProAir HFA] 1 - 2 inh INHALATION UD PRN (use if needed; please bring with you to hospital day of surgery if possible) Take evening before surgery Acid Manager Child 1 dose PO UD PRN (if needed) acetaminophen [Tylenol Extra Strength] 500 mg PO UD PRN (if needed) albuterol sulfate [ProAir HFA] 1 - 2 inh INHALATION UD PRN (if needed) Other Notes If you have any questions please call us at [phone] or [phone] or [phone] or [phone]
--- NOTE | 2019-08-12 11:58 | Anesthesiology Consultation ---
Date of Service August 12, 2019 Assessment & Plan (1) Encounter for pre-operative examination: Per PAT assessment on 08/11: Travel screen- Travel to [facility]. Wears PPE. No known COVID-19 positive contacts. No current COVID-19 related symptoms. No hx of COVID-19 testing in past 30 days. - Anxious: patient anxious re upcoming surgery and hx PONV. Discussed scope patch- patient declines at this time and states she will discuss further AM DOS if antiemetics or anxiolytics needed preoperatively* Chart Review Chart Review: Acceptable Risk for Surgery and Patient seen in Pre Admission Testing Teaching & Discussion Pre-Anesthesia Teaching/Discussion Notes: Instructed NPO after midnight before surgery,except medications with 15 cc of water. Medication instructions provided according to the PAT guidelines. History Surgery Operation Date: 09/17/19 09:05 Proposed Procedures p Left Total Knee Arthroplasty - Neil Simpson MD Height/Weight Height: 5 ft 4 in Weight: 120.7 kg Allergies Allergy/AdvReac Type Severity Reaction Status Date / Time adhesive Allergy Unknown SKIN Verified 08/06/19 14:57 IRRITATION, RASH, TEARS SKIN latex Allergy Unknown SKIN Verified 08/06/19 14:57 IRRITATION, RASH, TEARS SKIN Medications Home Medications Medication Instructions Recorded Confirmed Last Taken escitalopram oxalate [Lexapro] 10 mg PO QAM 10/16/18 08/06/19 10/16/18 losartan-hydrochlorothiazide 1 tab PO QAM 10/16/18 08/06/19 10/16/18 Acid Preparation Supervisor Freezing 1 dose PO UD PRN 08/06/19 08/06/19 Unknown acetaminophen [Tylenol Extra 500 mg PO UD PRN 08/06/19 08/06/19 Unknown Strength] albuterol sulfate [ProAir HFA] 1 - 2 inh INHALATION UD PRN 08/06/19 08/06/19 Unknown celecoxib [Celebrex] 200 mg PO DAILY 08/06/19 08/06/19 Unknown cholecalciferol (vitamin D3) 50 mcg PO Q2D 08/06/19 08/06/19 Unknown [Vitamin D3] lidocaine 1 patch TOPICAL UD PRN 08/06/19 08/06/19 Unknown Past Medical History Medical History (Updated 08/12/19 @ 15:33 by Chely Mcginnis) Acid reflux occasional Anxiety and depression Degenerative disc disease Exercise-induced asthma controlled Fatty liver High blood pressure High cholesterol Irregular heart beat ?PVC's, sinus arrhythmia on 10/17/18 EKG Morbid obesity Osteoarthritis Sleep apnea CPAP Exercise / Class Metabolic Activity III < 4 Walking/Shop/Light housework Past Family History Family History Other Family history of diabetes mellitus in brother Heart disease Past Surgical History Surgical History History of cardiac cath 10/2018- angiographically normal arteries History of colonoscopy History of elbow surgery TENNIS ELBOW/ RIGHT Past Anesthesia History No Hx of Anesthesia Complications (except PONV x1 episode) and No Family Hx of Anesthesia Complications History of PONV No Hx of Motion Sickness and History of PONV (x1 episode) Social History Smoking Status: Former smoker tobacco type: cigarettes Do You Dip or Chew Tobacco: No Smoking End Date: 30 YR OLD Hx Alcohol Use: Yes Alcohol type: beer and wine alcohol intake frequency: a few times a week Hx Substance Use: No substance use type: does not use Review of Systems Patient denies chest pain, shortness of breath, fever, chills, cough, wheezing, palpitations. Physical Exam Vital Signs VITALS BP 141/91 P 63 TEMP 98.9 SP02 96%RA RESP 16 PHYSICAL Full neck and c-spine range of motion. Full TMJ range of motion. TMD 3 finger breaths Mallampati Score 3 Dentition: missing molar, plan for filling replacement on left lower molar (patient advised to let surgeon know about upcoming dental work) Lungs: clear throughout to auscultation Cardiac: regular rate and rhythm, no murmurs noted Spine: normal Carotid arteries: negative bruit Extremities: no edema Thick neck Testing Laboratory Results 08/12/19 12:31 08/12/19 12:31 PT 10.2 Seconds (9.0-12.0) 08/12/19 12:31 INR 1.0 (0.9-1.1) 08/12/19 12:31 APTT 25.6 Seconds (21.0-31.0) 08/12/19 12:31 Hemoglobin A1c 5.5 % (4.5-5.6) 08/12/19 12:31 Urine Color Yellow 08/12/19 12:31 Urine Appearance Clear (Clear) 07/07/20 12:31 Urine pH 8.0 (4.5-7.5) H 08/12/19 12:31 Ur Specific [place] 1.008 (1.000-1.030) 08/12/19 12:31 Urine Protein Negative (Negative) 08/12/19 12:31 Urine Glucose (UA) Negative (Negative) 08/12/19 12:31 Urine Ketones Negative (Negative) 08/12/19 12:31 Urine Nitrite Negative (Negative) 08/12/19 12:31 Ur Leukocyte Esterase Negative (Negative) 08/12/19 12:31 Blood Type A Positive 08/12/19 12:31 Antibody Screen NEGATIVE 08/12/19 12:31 Electrocardiogram Date: 10/17/18 NSR with sinus arrhythmia at 68bpm. iRBBB. Chest X-Ray Date: 10/16/18 FINDINGS: Atherosclerosis of the aortic arch. Cardiac silhouette borderline enlarged. Minimal right basilar opacity may be present. No large effusion or pneumothorax. Osseous structures normal. Upper abdomen normal. IMPRESSION: Borderline cardiomegaly. Possible minimal right basilar atelectasis. Stress Test Date: 10/17/18 Type: DSE Ischemic DSE. Inducible HK of basal and mid inferior wall at target heart rate. 95% MPHR. Mild cLVH. EF 60-65%. Maximum 1.5mm segment depression in inferior lead. 1mm ST segment depression in lateral lead. Moderate mitral annular calcifications. Subsequent cardiac cath 10/17/18 with normal coronary arteries* Cardiac Catheterization Date: 10/17/18 [id number] to 70%, no wall motion normalities. Angiographically normal coronary ar teries. Mildly elevated intracardiac filling pressures. Normal LV systolic function Recommendations: Continued ASCVD risk factor modification. Further evaluation for noncardiac causes of chest pain per Dr. Knowles.
[2019-08-12 13:15] LABS: Basophils # (auto) 0.03 K/uL (0-0.2); Basophils % (auto) 0.5 %; Eosinophils # (auto) 0.13 K/uL (0-0.5); Eosinophils % (auto) 2.2 %; Hematocrit (blood only) 41.5 % (37-47); Hemoglobin 14.6 g/dL (12.0-16.0); Immature Granulocytes # (auto) 0.02 K/uL (0.00-0.02); Immature Granulocytes % (auto) 0.3 %; Lymphocytes % (auto) 26.6 %; Mean Corpuscular Hemoglobin 31.8 pg (25-34); Mean Corpuscular Hgb Conc 35.2 g/dL (32-36); Mean Corpuscular Volume 90.4 fL (80-100); Mean Platelet Volume 11.1 fL (7.4-10.4); Monocytes # (auto) 0.42 K/uL (0.11-0.59); Neutrophils # (auto) 3.82 K/uL (1.4-6.5); Neutrophils % (auto) 63.4 %; Platelet Count 224 K/uL (130-400); RDW Coefficient of Variation 12.9 % (11.5-14.5); RDW Standard Deviation 42.4 fL (36.4-46.3); Red Blood Count 4.59 M/uL (4.2-5.4); White Blood Count 6.02 K/uL (4.8-10.8)
[2019-08-12 13:25] LABS: Appearance Urine Clear (Clear); Bilirubin Urine Negative (Negative); Blood Urine Negative (Negative); Color Urine Yellow; Glucose Urine UA Negative (Negative); Ketones Urine Negative (Negative); Leukocyte Esterase Urine Negative (Negative); Nitrite Urine Negative (Negative); Protein Urine Negative (Negative); Specific Gravity Urine 1.008 (1.000-1.030); Urobilinogen Urine Negative (Negative)
[2019-08-12 13:27] LABS: Partial Thromboplastin Ratio 0.9; Partial Thromboplastin Time 25.6 Seconds (21.0-31.0); Prothrombin Time 10.2 Seconds (9.0-12.0)
[2019-08-12 13:47] LABS: Estimated Average Glucose 111 mg/dl; Hemoglobin A1C 5.5 % (4.5-5.6)
[2019-08-12 16:01] LABS: Albumin Level 3.8 gm/dl (3.4-5.0); BUN Creatinine Ratio 17.4 (10-20); Creatinine Clr Calc Pharmacy 134.3 ml/min; Est GFR (African American) 119.3; Est GFR (Non-African American) 102.9; Potassium 3.8 mmol/L (3.5-5.1)
--- NOTE | 2019-09-16 19:30 | History and Physical Report ---
DATE OF ADMISSION: 09/17/2019 CHIEF COMPLAINT: Chronic left knee pain. HISTORY OF PRESENT ILLNESS: This is a 54-year-old female patient of Dr. Simpson'shadi complaining of chronic left knee pain, longstanding, now progressively getting worse. The patient has failed conservative treatment including intraarticular injections, viscosupplementation, anti-inflammatories, physical therapy, use of cane and use of a brace. The patient has increased pain with weightbearing activities and her pain does interfere with her activities of daily living. The patient has been diagnosed with end-stage osteoarthritis per clinical and radiographic exams. The patient wished to proceed with a left total knee arthroplasty. PAST MEDICAL HISTORY: Hypertension, hypercholesterolemia, benign irregular heartbeat, sleep apnea with use of CPAP, anxiety, osteoarthritis, sciatica, acid reflux, obesity. SOCIAL HISTORY: Nonsmoker and nondrinker. PAST SURGICAL HISTORY: Right elbow surgery. FAMILY HISTORY: Noncontributory. REVIEW OF SYSTEMS: Chronic left knee pain, otherwise denies any shortness of breath, chest pain, nausea, vomiting or any other joint complaints. MEDICATIONS: 1. Hydrochlorothiazide 12.5 mg daily. 2. Lidoderm 5% adhesive patch to affected area every 12 hours as needed. 3. Losartan 50 mg daily. 4. Celebrex 200 mg daily. 5. Lexapro 10 mg daily. ALLERGIES: LATEX, WHICH CAUSES HIVES AND RASH AND MELOXICAM, WHICH CAUSES JOINT PAIN. PHYSICAL EXAMINATION: GENERAL: Well-developed, well-nourished 54-year-old female in no acute distress. She is alert and oriented x3 and pleasant. HEENT: Normocephalic, atraumatic. Extraocular motions are intact. Pupils are equal, reactive to light. HEART: Regular rate and rhythm, no murmurs. LUNGS: Clear. ABDOMEN: Soft, nontender, bowel sounds present. EXTREMITIES: Left knee varus deformity. Range of motion 0-115. Medial joint line tenderness, 5/5 strength with pain. Neurologically and neurovascularly, she is intact in her left lower extremity. DIAGNOSES: Left knee end-stage osteoarthritis, hypertension, hypercholesterolemia, benign irregular heartbeat, sleep apnea with use of CPAP, anxiety, osteoarthritis, sciatica, acid reflux, obesity. PLAN: The patient was advised of her diagnosis. Indications, risks, benefits, postop course have all been reviewed. The patient wished to proceed with a left total knee arthroplasty. Necessary consent forms, preoperative testing and clearances will be obtained.
[~2019-09-17 07:30] MED LIST: ACETAMINOPHEN 500 MG TAB PO SCH; BUPIVACAINE 0.25% 30 ML VIAL ONE; BUPIVACAINE 0.5 % 5 MG/1 ML PF 10ML VIAL ONE; CEFAZOLIN 3000MG 72.5 ML IV SCH; CeleBREX 200 MG CAP PO SCH; FAMOTIDINE 20 MG TAB PO SCH; GABAPENTIN 900 MG DOSE PO SCH; LIDOCAINE HCL 2% 2 ML VIAL/AMP(20MG/ML) INFIL ONE; LR 500ML BOLUS, THEN 15ML/HR IV SCH; METOCLOPRAMIDE HCL 10 MG TABLET PO SCH; MIDAZOLAM HCL 1 MG/ML 2ML VIAL ONE; PROPOFOL IV EMULSION 10 MG/ML 20 ML VIAL IV ONE; ROPIVACAINE 0.5% HCL/PF 150 MG, BUPIVACAINE 0.5% MPF 30 ML, EPINEPHrine 30MG/30ML (OR U... INFIL SCH; TRANEXAMIC ACID 1,000 MG **IV Intra-op IV SCH; dexAMETHasone 4 MG TAB PO SCH; fentaNYL citrate 100 MCG/2 ML VIAL ONE
--- NOTE | 2019-09-17 07:52 | History & Physical Bridge Note ---
Date of Service September 17, 2019 History & Physical Bridge Note I have examined the patient, reviewed the History & Physical and in the interval since the performance of the History & Physical I have noted the following changes of clinical significance: no changes noted
[2019-09-17] MEDS ORDERED: ORTHO JOINT ANESTHETIC ONE (07:54)
[2019-09-17] MEDS ORDERED: BACITRACIN INJ 50,000 UNIT VIAL ONE (07:54)
[2019-09-17] MEDS ORDERED: ePHEDrine sulfate 50 MG/ML AMP IV PRN (09:16)
[2019-09-17] MEDS ORDERED: ATROPINE SULFATE 0.1 MG/ML 10ML SYR IV PRN (09:16)
[2019-09-17] MEDS ORDERED: ONDANSETRON INJ 2 MG/ML 2 ML VIAL IV PRN ×2 (09:16→13:30)
[2019-09-17] MEDS ORDERED: GLYCOPYRROLATE 0.2 MG/ML VIAL ONE (09:30)
[2019-09-17] MEDS ORDERED: ONDANSETRON INJ 2 MG/ML 2 ML VIAL ONE (09:53)
[2019-09-17] MEDS ORDERED: DEXAMETHASONE SOD INJ 4 MG/ML VIAL ONE (09:53)
[2019-09-17] MEDS ORDERED: PROPOFOL IV EMULSION 10 MG/ML 20 ML VIAL IV ONE ×2 (10:02)
[2019-09-17] MEDS: TRANEXAMIC ACID 1,000 MG **IV Pre-op IV SCH ×2 (11:05→12:28)
--- NOTE | 2019-09-17 11:14 | Operative Report ---
Post Operative Report Pre & Post Diagnosis Operation Date: 09/17/19 09:30 Pre-Op Diagnosis: Left Knee Osteoarthritis, morbid obesity BMI 45.4 Post-Op Diagnosis: Left Knee Osteoarthritis, morbid obesity BMI 45.4 I identified the patient and participated in the time-out.: Yes Procedure Operation Date: 09/17/19 09:30 Actual Procedures p Left Total Knee Arthroplasty(Left) - Neil Simpson MD Surgeon Neil Simpson MD Crystal Cutter Alcon CULP Estimated Blood Loss 5 Findings Consistent with Post-Op Diagnosis Specimens Bone cuts Drains 2 Hemovac Anesthesia Type MAC Spinal Regional Complications none Disposition Accompanied Patient To Recovery: No Disposition: Recovery Room Indications 51-year-old female with end-stage bilateral knee osteoarthritis left greater than right. Varus knee [id number] medial compartment moderate advanced patellofemoral osteoarthritis Description of Procedure Patient taken to the operating room placed supine on the operating table and anesthetized under spinal MAC regional anesthesia. Exam under anesthesia demonstrated 10 degree flexion contracture, flexion to 115 degrees. No instability. Moderate effusion. A pneumatic tourniquet was placed about the obese thigh of the left lower extremity. The left lower extremity was prepped and draped in usual fashion. Leg was elevated exsanguinated with an Esmarch bandage and the pneumatic was raised to 350 mm mercury. An anterior incision was made across the left knee. The skin was incised longitudinally subcutaneous flaps were elevated and an incision was made through the medial retinaculum extending up into the mid third of the quadriceps tendon and extended down to the medial tibial tubercle. Intra-articular findings demonstrated tricompartmental DJD [id number] medial compartment advanced patellofemoral osteoarthritis grade 3 close to grade 4. The knee was exposed by excising the infrapatellar fat pad, excising the meniscal remnants and cruciate ligaments or remnants of the ligaments. Any inflamed synovial tissue was resected. The fat pad over the anterior femur was resected for placement of the component in that area. The lateral synovial bands were release. Appropriate releases were performed to balance ligaments. The femur was exposed. The custom femoral cutting block was pinned in position. The distal femoral cutting block was applied. The distal femoral cut was made with the oscillating saw. The size 8 4-in-1 cutting block was placed. The anterior and posterior chamfer cuts were made. The knee was extended and a subperiosteal peel lateral release was performed around the patella. The patella width was measured and width was reproduced using freehand cut technique. The 35 x 9 millimeter symmetrical patella was used. 3 drill holes are made for the pegs. The tibia was exposed. An external tibial cutting was adjusted to make a perpendicular cut to the long axis of the tibia with adding appropriate posterior slope and the proximal cut was made with the oscillating saw. All osteophytes were resected. The lamina 7th grade social studies teacher was used to assess ligamentous balance and the ligaments were balanced in extension and flexion. The tibia was reexposed and measured for a size E tibial component. This was externally rotated in line with the tibial tubercle and the fixation pins were drilled. The proximal tibia was fashioned with the drill and punch. The size 8 femoral trial was inserted. The trial MC inserts were used. The 13 MC mm insert gave balanced ligaments through full range of motion. The patella tracked with some subtle liftoff and deep flexion so I did do a limited lateral release leaving the synovium intact which created centrally tracking patella through full range of motion. the trials were removed. The orthomix anesthetic cocktail was injected per protocol. The knee was then copiously irrigated with pulsatile lavage antibiotic solution with bacitracin. The final components were cemented with Simplex cement. The final components were 8 standard left persona Rc Biomet CR femoral component, E tibia, 13 mm MC tibial polyethylene, 35 x 9 symmetrical patella. While the cement cured with the knee in full extension the Betadine soak was used per protocol. After the cement cured, the knee joint was copiously irrigated with antibiotic solution with bacitracin. 2 drains were brought out laterally and connected to a Hemovac. The quadriceps tendon and medial retinaculum were closed with interrupted [id number] #1 Vicryl sutures. The knee was taken through a full range of motion and repair was secure. The subcutaneous tissues were closed with 2-0 Vicryl sutures and skin was closed with carlos. Sterile dressings were applied and the patient tolerated the procedure well. Alcon CULP my physician assistant golf coach, assisted in soft tissue retraction instrument management leg positioning the closure and will participate in the postoperative care of the patient. I attest to the content of the Intraoperative Record and any orders documented therein. Any exceptions are noted below.
--- NOTE | 2019-09-17 12:07 | XRay Report ---
LEFT KNEE 2 VIEWS History: Left total knee arthroplasty. Degenerative arthritis. Postop. FINDINGS: The patient is status post a left total knee arthroplasty. The hardware is intact. No fract ure or dislocation. Skin carlos are in place. IMPRESSION: Left total knee arthroplasty. No evidence for hardware complication. ACT 112: Negative or not required by law. Electronically signed by: Justice Gomez M.D. 09/17/2019 12:06 PM
[2019-09-17] MEDS ORDERED: NALOXONE HCL 0.4 MG/1 ML VIAL/CARP IV PRN (13:15)
[2019-09-17] MEDS ORDERED: HYDROmorphone INJ 0.5 MG/0.5 ML SYR IV PRN (13:15)
[2019-09-17] MEDS ORDERED: MAGNESIUM HYDROXIDE SUSP 30 ML UDC PO PRN (13:15)
[2019-09-17] MEDS ORDERED: bisacodyL 10 MG SUPP PR PRN (13:30)
[2019-09-17] MEDS ORDERED: ALBUTEROL HFA INHALER 8.5 GM INH PRN (14:00)
[2019-09-17] MEDS: SODIUM CHLORIDE 0.9% 1000ML 1,000 ML IV SCH (14:20)
[2019-09-17] MEDS: ACETAMINOPHEN 500 MG TAB PO SCH ×2 (14:21→21:27)
--- NOTE | 2019-09-17 14:42 | Hospitalist Consultation ---
Date of Consultation September 17, 2019 Assessment & Plan (1) Status post left knee replacement: - POD#[address] Simpson - activity and wound care orders as per ortho - pain control with bowel regimen - PT/OT - monitor H/H for acute blood loss anemia and transfuse blood products PRN - EBL 5 cc (2) HTN (hypertension): -BP controlled, continue losartan and HCTZ; monitor renal functions (3) Sleep apnea: -Home CPAP (4) DVT prophylaxis: -Aspirin 81 mg twice daily as per orthopedics Thank you for this consultation. We will follow the patient with you during their hospital stay. You can reach a member of the [facility] Hospitalist Team 28/08 via pager @ [phone]. Supervising Physician Co-Signing Physician Notes Pt was seen and examined. Agreed with Sruthi SANCHEZ exam, assessment and plan. 54-year-old female with PMH HTN, CARLA, status post left TKA performed today by Dr. Simpson. No postop complication. Continue pain management as per ortho. Incentive spirometry. PT/OT consult. Fall precaution. Continue Monitor BP. Will monitor H/H. MD Jack History of Present Illness Reason for Consultation: Postop medical management Requesting Physician: Dr. Simpson Attending Physician: Dr. Santiago History of Present Illness 54-year-old female with PMH HTN, CARLA, and other problems to below who is status post left TKA today by Dr. Simpson. Postoperatively, the patient is doing well. She reports her pain is well controlled. She reports some residual numbness to the bilateral lower extremities. Denies chest pain or shortness of breath. No lightheadedness or dizziness. Denies abdominal pain or nausea. She has not voided since surgery. Allergies Allergy/AdvReac Type Severity Reaction Status Date / Time adhesive Allergy Unknown SKIN Verified 09/17/19 08:03 IRRITATION, RASH, TEARS SKIN latex Allergy Unknown SKIN Verified 09/17/19 08:03 IRRITATION, RASH, TEARS SKIN Home Medications Home Medications Medication Instructions Recorded Confirmed Type escitalopram oxalate [Lexapro] 10 mg PO QAM 10/16/18 09/17/19 History Acid Exercise Specialist 1 dose PO UD PRN 08/06/19 09/17/19 History albuterol sulfate [ProAir HFA] 1 - 2 inh INHALATION UD PRN 08/06/19 09/17/19 History cholecalciferol (vitamin D3) 50 mcg PO Q2D 08/06/19 09/17/19 History [Vitamin D3] lidocaine 1 patch TOPICAL UD PRN 08/06/19 09/17/19 History hydrochlorothiazide 12.5 mg PO DAILY 09/17/19 09/17/19 History losartan 50 mg PO DAILY 09/17/19 09/17/19 History acetaminophen 1,000 mg PO Q8 30 Days #180 tab 09/18/19 Rx aspirin 81 mg PO BID 30 Days #60 tab 09/18/19 Rx celecoxib [Celebrex] 200 mg PO BID 30 Days #60 cap 09/18/19 Rx oxycodone 5 mg PO Q4H PRN #30 tab 09/18/19 Rx Patient History Medical History Acid reflux occasional Anxiety and depression Degenerative disc disease Exercise-induced asthma controlled Fatty liver High cholesterol HTN (hypertension) Irregular heart beat ?PVC's, sinus arrhythmia on 10/17/18 EKG Morbid obesity Osteoarthritis Sleep apnea CPAP Surgical History History of cardiac cath 10/2018- angiographically normal arteries History of colonoscopy History of elbow surgery TENNIS ELBOW/ RIGHT Family History Other Family history of diabetes mellitus in brother Heart disease Social History Smoking Status: Former smoker Second Hand Exposure: Yes; Hx Alcohol Use: Yes Alcohol type: beer and wine Hx Substance Use: No Preferred Language: Amharic Communication Ability: Effective Rubber Compounder Supervisor Required: No Beliefs That Will Affect Care: Roman Catholic Roman Catholic Beliefs: MORAVIAN Current Living Situation: Spouse Feels Safe at Home: Yes Review of Systems Review of Systems: ROS per HPI, all other systems reviewed and negative Physical Exam Constitutional: WD/WN, vitals as above Eyes: PERRL, conjunctivae normal, anicteric sclerae ENMT: external ear and nose normal, oropharynx normal Respiratory: normal respiratory effort, lungs clear to auscultation Cardiovascular: Rate/Rhythm: regular rate and regular rhythm Vessels: normal peripheral pulses Extremities: no edema Gastrointestinal (Abdomen): normal bowel sounds, soft, nontender, no hepatosplenomegaly Musculoskeletal: S/p left knee surgery, surgical dressing dry and intact, drain in place draining bloody drainage, has some residual numbness to lower extremities Skin: no rashes, warm and dry Neurologic: PERRL, EOMI, accommodation nl, no face palsy, no dysarthria Psychiatric: A+Ox3, euthymic affect Results & Data Results & Data ([facility]) Vital Signs (Past 12 Hours) Vital Signs Temp Pulse Pulse Resp BP BP Pulse Ox 09/17/19 13:15 36.5 C 78 16 141/75 H 99 09/17/19 12:45 36.5 C 78 16 142/86 H 98 09/17/19 11:55 36.8 C 68 16 118/78 96 09/17/19 11:45 77 16 115/73 97 09/17/19 11:35 81 18 106/76 97 09/17/19 11:29 37.2 C 90 18 109/61 96 09/17/19 08:10 36.8 C 77 18 129/92 96
[2019-09-17] MEDS: CEFAZOLIN 2000MG 2,000 MG/15 ML SYR IV SCH (16:22)
--- NOTE | 2019-09-17 16:26 | Anesthesiology Progress Note ---
Date of Service September 17, 2019 Anesthesia Post Procedure Vital Signs Vital Signs: Temp Pulse Pulse Resp BP BP Pulse Ox 09/17/19 15:17 36.7 C 73 18 144/84 H 96 09/17/19 14:15 36.6 C 74 16 134/81 98 09/17/19 13:15 36.5 C 78 16 141/75 H 99 09/17/19 12:45 36.5 C 78 16 142/86 H 98 09/17/19 12:15 36.5 C 66 15 119/72 95 09/17/19 11:55 36.8 C 68 16 118/78 96 09/17/19 11:45 77 16 115/73 97 09/17/19 11:35 81 18 106/76 97 09/17/19 11:29 37.2 C 90 18 109/61 96 09/17/19 08:10 36.8 C 77 18 129/92 96 Transfer of Care Handoff Completed per policy Notes Mental Status: alert / awake / arousable and participated in evaluation Patient Amnestic to Procedure: Yes Nausea / Vomiting: adequately controlled Pain: adequately controlled Airway Patency, RR, SpO2: stable & adequate BP & HR: stable & adequate Hydration State: stable & adequate Neuraxial Anesthesia: was administered and sensory block is resolving Anesthetic Complications: no major complications apparent and Pt Satisfied with anesthetic care
[2019-09-17] MEDS: CeleBREX 200 MG CAP PO SCH (20:01)
[2019-09-17] MEDS: OXYCODONE HCL IR 5 MG TAB (IMMEDIATE RELEASE) PO PRN (20:02)
[2019-09-17] MEDS: ASPIRIN 81 MG ECTAB PO SCH (20:45)
[2019-09-17] MEDS: DOCUSATE SODIUM 100 MG CAP PO SCH (20:45)
[2019-09-17] MEDS ORDERED: SENNA 8.6 MG TAB PO SCH (21:00)
[2019-09-18] MEDS: OXYCODONE HCL IR 5 MG TAB (IMMEDIATE RELEASE) PO PRN ×3 (00:18→13:05)
[2019-09-18] MEDS: CEFAZOLIN 2000MG 2,000 MG/15 ML SYR IV SCH (00:19)
[2019-09-18] MEDS: SODIUM CHLORIDE 0.9% 1000ML 1,000 ML IV SCH (01:41)
[2019-09-18] MEDS: ACETAMINOPHEN 500 MG TAB PO SCH ×2 (05:13→13:05)
[2019-09-18 06:10] LABS: Hemoglobin 12.1 g/dL (12.0-16.0); Mean Corpuscular Hgb Conc 33.6 g/dL (32-36); Mean Corpuscular Volume 89.1 fL (80-100); Platelet Count 245 K/uL (130-400); RDW Coefficient of Variation 12.6 % (11.5-14.5); RDW Standard Deviation 40.6 fL (36.4-46.3); Red Blood Count 4.04 M/uL (4.2-5.4); White Blood Count 13.08 K/uL (4.8-10.8)
[2019-09-18 06:40] LABS: BUN Creatinine Ratio 17.6 (10-20); Calcium 8.8 mg/dl (8.5-10.1); Creatinine Clr Calc Pharmacy 120.2 ml/min; Est GFR (African American) 115.2; Est GFR (Non-African American) 99.4; Potassium 4.1 mmol/L (3.5-5.1)
[2019-09-18] MEDS: DOCUSATE SODIUM 100 MG CAP PO SCH (08:15)
[2019-09-18] MEDS: CeleBREX 200 MG CAP PO SCH (08:15)
[2019-09-18] MEDS: ASPIRIN 81 MG ECTAB PO SCH (08:15)
[2019-09-18] MEDS ORDERED: ESCITALOPRAM OXALATE 10 MG TAB PO SCH (09:00)
[2019-09-18] MEDS ORDERED: MULTIVITAMIN TAB PO SCH (09:00)
[2019-09-18] MEDS ORDERED: LOSARTAN/HCTZ 50/12.5MG TAB PO SCH (09:00)
--- NOTE | 2019-09-18 09:09 | Hospitalist Progress Note ---
Date of Service September 18, 2019 Assessment & Plan (1) Status post left knee replacement: POD#[address] Simpson EBL#5ml Total Hemovac drain output #560ml - activity and wound care orders as per ortho - pain control with bowel regimen - PT/OT - Hgb: 12, was 14.6 pre-op. Continue to monitor H/H (2) HTN (hypertension): BP controlled -continue losartan and HCTZ -Renal functions WNL and stable (3) Sleep apnea: -Home CPAP (4) DVT prophylaxis: -Aspirin 81 mg twice daily as per orthopedics Disposition per primary service Pt was seen and care coordinated with Dr Santiago. See addendum Thank you for this consultation. We will follow the patient with you during their hospital stay. You can reach a member of the [facility] Hospitalist Team 28/08 via pager @ [phone]. Admission and Anticipated Discharge Date Admission Date: September 17, 2019 Supervising Physician Co-Signing Physician Notes Pt was seen and examined. Agreed with Shelley MARSHALL exam, assessment and plan. S/P day#1 Left Total Knee Arthroplasty by Dr. Simpson. No Postop complications. Hgb 12 today. Walk in the hallway with PT, Continue PT/OT. Pain control. Fall precaution. BP stable. MD Jack Subjective Pt seen and examined. Sitting in bedside chair. POD #1 s/p L TKA. Reports pain controlled with pain medication. Pain medication makes a little dizzy. Did not sleep well last night secondary to being in the hospital. Eating and drinking well. Denies any N/V. Urinating without difficulty. Denies dysuria. Passing flatus. Denies fever/chills, diaphoresis, ORTIZ, syncope, CP, SOB, palpitations, cough, sore throat, choking, abdominal pain, paresthesias, weakness, extremity edema, rashes. Review of Systems Review of Systems: All systems reviewed & are unremarkable except as noted in HPI & below Physical Exam Physical Exam: General: no distress, obese Head: normocephalic, atraumatic Eyes: conjunctiva non-injected, anicteric ENT: normal inspection external ears, nose, mucous membranes moist Neck: supple, trachea midline Lungs: clear, no respiratory distress, no wheezing/rhonchi/rales CV: RRR, no murmur, no pretibial edema Abd: normal BS, soft, non-tender Ext: Left leg with BRAD wrap and surgical dressing, Hemovac in place with serosanguineous drainage, no calf tenderness, distal pulses intact, sensation to light touch intact Neuro: A&O x 3, no focal deficits noted, normal affect Skin: warm, dry Results & Data Results & Data ([facility]) Vital Signs (Past 12 Hours) Vital Signs Temp Pulse Pulse Resp BP Pulse Ox 09/18/19 07:14 36.7 C 59 L 16 127/80 93 09/18/19 03:46 36.8 C 71 16 122/78 95 09/17/19 23:20 36.7 C 75 18 115/70 93 Laboratory Results Short CBC 09/18/19 Range/Units 05:19 WBC 13.08 H (4.8-10.8) K/uL Hgb 12.1 (12.0-16.0) g/dL Hct 36.0 L (37-47) % Plt Count 245 (130-400) K/uL BMP 09/18/19 05:19 Sodium 139 Potassium 4.1 Chloride 108 H Carbon Dioxide 25 BUN 12 Creatinine 0.69 Glucose 132 H Calcium 8.8
--- NOTE | 2019-09-18 09:44 | Orthopedic Progress Note ---
Date of Service September 18, 2019 Assessment & Plan (1) Status post left knee replacement: POD #1, Left TKA PT/ OT DVT proph- ASA D/C planning- Home w OPPT today after 1500 if stable and drain out put < 150 at 1500 shift change Appreciate medicine input Admission and Anticipated Discharge Date Admission Date: September 17, 2019 Subjective POD #1, Feeling well Denies SOB, CP, N/V, dizziness. Pain controlled well. Patient wishes for OPPT at discharge. Physical Exam Physical Exam: Left knee dressings c/d/i, no drainage. Toes/ ankle mobile. No calf tenderness. A&Ox3 VSS. Results & Data ([facility]) Vital Signs (Past 12 Hours) Vital Signs Temp Pulse Pulse Resp BP Pulse Ox 09/18/19 07:14 36.7 C 59 L 16 127/80 93 09/18/19 03:46 36.8 C 71 16 122/78 95 09/17/19 23:20 36.7 C 75 18 115/70 93
--- NOTE | 2019-09-19 13:54 | Discharge Summary ---
Date of Service September 19, 2019 Admission HPI Per Admitting Provider This is a 54-year-old female patient of Dr. Simpson's complaining of chronic left knee pain, longstanding, now progressively getting worse. The patient has failed conservative treatment including intraarticular injections, viscosupplementation, anti-inflammatories, physical therapy, use of cane and use of a brace. The patient has increased pain with weightbearing activities and her pain does interfere with her activities of daily living. The patient has been diagnosed with end-stage osteoarthritis per clinical and radiographic exams. The patient wished to proceed with a left total knee arthroplasty. Admission Exam Per Admitting Provider GENERAL: Well-developed, well-nourished 54-year-old female in no acute distress. She is alert and oriented x3 and pleasant. HEENT: Normocephalic, atraumatic. Extraocular motions are intact. Pupils are equal, reactive to light. HEART: Regular rate and rhythm, no murmurs. LUNGS: Clear. ABDOMEN: Soft, nontender, bowel sounds present. EXTREMITIES: Left knee varus deformity. Range of motion 0-115. Medial joint line tenderness, 5/5 strength with pain. Neurologically and neurovascularly, she is intact in her left lower extremit Principal Diagnosis Left Knee Djd Discharge Data Allergies Allergy/AdvReac Type Severity Reaction Status Date / Time adhesive Allergy Unknown SKIN Verified 09/17/19 08:03 IRRITATION, RASH, TEARS SKIN latex Allergy Unknown SKIN Verified 09/17/19 08:03 IRRITATION, RASH, TEARS SKIN Consultations 09/12/19 15:52 Consult Hospitalist Routine 09/17/19 12:25 Consult Case Management - Discharge Planning Routine Procedures Performed Operation Date: 09/17/19 09:30 Actual Procedures p Left Total Knee Arthroplasty(Left) - Neil Simpson MD Ordered Studies 09/17/19 05:00 US - OR guided needle placemen Routine Hospital Course (1) Status post left knee replacement: Assessment & Plan (1) Status post left knee replacement: POD #1, Left TKA PT/ OT DVT proph- ASA D/C planning- Home w OPPT today after 1500 if stable and drain out put < 150 at 1500 shift change Appreciate medicine input Admission and Anticipated Discharge Date Admission Date: September 17, 2019 Subjective POD #1, Feeling well Denies SOB, CP, N/V, dizziness. Pain controlled well. Patient wishes for OPPT at discharge. Physical Exam Physical Exam: Left knee dressings c/d/i, no drainage. Toes/ ankle mobile. No calf tenderness. A&Ox3 VSS. Results & Data ([facility]) Vital Signs (Past 12 Hours) Vital Signs Temp Pulse Pulse Resp BP Pulse Ox 09/18/19 07:14 36.7 C 59 L 16 127/80 93 09/18/19 03:46 36.8 C 71 16 122/78 95 09/17/19 23:20 36.7 C 75 18 115/70 93 Hgb 12.1 Total Time Total Time Spent Total Time Spent (In Minutes): 10 Discharge Plan Discharge Items Patient Disposition: Home - Self-Care Reason For Visit: LEFT KNEE OSTEOARTHRITIS Discharge Diagnosis: Same Activity: Per Instructions section Non-emergency contact: Surgeon Call non-emergency contact if: your pain is not controlled, your pain is unusual for you, your temperature is above 101, your wound has increased redness, your wound has increased drainage and your wound pain has increased Follow-up/Referrals: Leander Nuñez MD [Primary Care Provider] - Diet: Regular Addtl Attending Provider Instructions: ACTIVITY RECOMMENDATIONS: SELF CARE INSTRUCTIONS AFTER TOTAL KNEE REPLACEMENT A. You may need to continue a physical therapy program after discharge from the hospital. There are several options available to you. Your doctor will assist you in selecting the best one for you. 1. An out-patient facility 2 to 3 times a week for therapy or home therapy. 2. Continue working on all exercises taught to you in the hospital. Your goals should be to increase bending of your knee to 90 degrees and beyond and to fully straighten your knee. B. You may progress at your own pace from walking with a walker or crutches to a cane; then to no assistive devices. C. Make walking a part of your daily routine. Be up as much as comfortable with rest periods throughout the day. Rest with leg elevation is very important. Use the ice wrap frequently for the first 3-4 weeks. D. There are no restrictions on activities. You may ride in a car, shop, participate in community service specialist and all social activities. E. Wear the long elastic stockings (MARV hose) 20 hours a day for 2 weeks after surgery. They can be removed several times a day for laundering and for a bath. F. You may shower, no tub baths until cleared by your doctor. SPECIAL CARE INSTRUCTIONS: VERY IMPORTANT TO READ AND REVIEW A. There are a few signs you need to watch for after you are home. Call [facility] if you notice any of the followin. Increased severe knee pain. Some pain is expected especially when you exercise. 2. Increased swelling in your leg or knee; pain or swelling of the calf muscle in either lower leg. 3. Any fluid drainage from the incision. 4. Shortness of breath or chest pain. B. Please call [facility] at if you have any concerns or questions about your operation or recovery. The doctor or his nurse will return your call promptly. C. You must take antibiotics before dental work, bladder, bowel or other surgery. Your doctor will provide you with a permanent care to carry describing this precaution. IMPORTANT: * REMEMBER TO TAKE ASPIRIN, 81 MG, TWICE DAILY FOR 4 WEEKS UNLESS OTHERWISE DIRECTED. THIS IS YOUR BLOOD THINNER. * HIGH RISK PATIENTS MAY BE PRESCRIBED A STRONGER BLOOD THINNER. THIS WILL BE PROVIDED AT DISCHARGE. * CALL IF INCREASED PAIN, REDNESS, DRAINAGE OR FEVER GREATER THAT 101. * WEAR MARV HOSE 20 HOURS PER DAY FOR 2 WEEKS. * YOU MAY HAVE A LARGE BAND-AID LIKE DRESSING (SILVERON). THIS WILL REMAIN ON YOUR INCISION FOR 7 DAYS, THEN CAN BE REMOVED. IF INCISION IS LEAKING THROUGH DRESSING, CALL THE OFFICE . FOLLOW UP VISIT: If appointment is not already scheduled: Please call [facility] to make a follow-up appointment for 2 weeks after your surgery at . Pending Studies at Discharge: No Stand-Alone Forms: My [facility] [employer], Smoking Cessation Medications and DC Order Prescriptions: New acetaminophen 500 mg Tablet 1,000 mg PO Q8 30 Days Qty: 180 RF: 0 aspirin 81 mg Tablet,Delayed Release (Dr/Ec) 81 mg PO BID 30 Days Qty: 60 RF: 0 celecoxib [Celebrex] 200 mg Capsule 200 mg PO BID 30 Days Qty: 60 RF: 1 oxycodone 5 mg Tablet 5 mg PO Q4H PRN (Reason: pain) Qty: 30 RF: 0 Continued escitalopram oxalate [Lexapro] 10 mg Tablet 10 mg PO QAM RF: 0 cholecalciferol (vitamin D3) [Vitamin D3] 50 mcg (2,000 unit) Capsule 50 mcg PO Q2D RF: 0 lidocaine 5 % Adhesive Patch,Medicated 1 patch TOPICAL UD PRN (Reason: Pain) RF: 0 albuterol sulfate [ProAir HFA] 90 mcg/actuation Hfa Aerosol Inhaler 1 - 2 inh INHALATION UD PRN (Reason: SOB) RF: 0 Acid Timber Rider 1 dose PO UD PRN (Reason: Acid Reflux) RF: 0 losartan 50 mg tablet 50 mg PO DAILY RF: 0 hydrochlorothiazide 12.5 mg tablet 12.5 mg PO DAILY RF: 0 Discontinued celecoxib [Celebrex] 200 mg Capsule 200 mg PO DAILY RF: 0 acetaminophen [Tylenol Extra Strength] 500 mg Tablet 500 mg PO UD PRN (Reason: Pain) RF: 0 Discharge Orders: Discharge Order (Routine); Ordered 09/18/19 Ordered By: Roni Costello/Other Patient Handouts: DVT Post Op Prevention Admission Data Admit Date/Time: 09/17/19 11:36 Attending Provider: Neil Simpson Admit Provider: Neil Simpson Primary Care Provider: Leander Nuñez Other Providers: Kendrick Lang ; Adrian Santiago Other Interventions: Discharge Summary Assessment (RN) Last Done: 09/18/19 14:21
== END 2019-09-18 15:08 | disposition home or self-care (01) | DRG 470 ==
LOC: ASU 07:30 → 3E 11:36

== ENCOUNTER 2020-05-13 05:18 | Inpatient (IN) ==
--- NOTE | 2020-04-20 17:05 | Communication Note ---
Date of Service: April 20, 2020 Patient reported upcoming vacation plans to PAT RN. She and her plan on driving to [place] 04/24 and returning on 05/04. They are very cautious...use gloves at gas stations, don't eat out, will be on a private beach, and both are fully vaccinated. In collaborative discussion with [facility] clinical staff, decided patient is OK to travel, as risk seems equal to local activity. She will come to [facility] for COVID PCR test on 05/10. [facility] testing has been resulting in 24-48 hours, so epxect results will be back in time for surgery. This way, patient will be 5 days post-travel. Surgeon's office is aware of this plan; Becky to send COVID testing order to [facility].
--- NOTE | 2020-04-26 11:39 | Anesthesiology Consultation ---
Date of Service April 26, 2020 Assessment & Plan (1) Encounter for pre-operative examination: Chart Review Chart Review: Acceptable Risk for Surgery (pending preop Covid testing ) and Patient NOT seen in Pre Admission Testing - Check test AM DOS Per nursing assessment 04/20/2020, patient resides in [facility]. Plans to travel to [place] 04/24/20 (driving). Only does take out with food (no dine in restaurants, wears gloves when getting gas, and always wears mask in public). Pt is going to private area in [place]- plans to return 05/04/20 (has had both Covid vaccines). Works remotely. No known Covid positive contacts or Covid related symptoms. No known Covid infection in the past 90 days. Pt scheduled for preop Covid testing 05/10/20= will await results. (Covid test will be 5-6 days post travel). Left TKA 09/17/2019 = done under [facility] at L4-5 with 1 attempt. No anesthesia issues noted per anesthesia record. History Surgery Operation Date: 05/13/20 07:00 Proposed Procedures p Right Total Knee Arthroplasty - Neil Simpson MD Height/Weight Height: 5 ft 4 in Weight: 117.934 kg Allergies Allergy/AdvReac Type Severity Reaction Status Date / Time adhesive Allergy Unknown SKIN Verified 04/20/20 12:25 IRRITATION, RASH, TEARS SKIN latex Allergy Unknown SKIN Verified 04/20/20 12:25 IRRITATION, RASH, TEARS SKIN Medications Home Medications Medication Instructions Recorded Confirmed Last Taken escitalopram oxalate [Lexapro] 10 mg PO QAM 10/16/18 04/20/20 09/16/19 08:00 albuterol sulfate [ProAir HFA] 1 - 2 inh INHALATION UD PRN 08/06/19 04/20/20 1 Month Ago ~08/17/19 cholecalciferol (vitamin D3) 50 mcg PO Q2D 08/06/19 04/20/20 09/15/19 08:00 [Vitamin D3] lidocaine 1 patch TOPICAL UD PRN 08/06/19 04/20/20 09/14/19 20:00 hydrochlorothiazide 12.5 mg PO QAM 09/17/19 04/20/20 Unknown losartan 50 mg PO QAM 09/17/19 04/20/20 Unknown celecoxib [Celebrex] 200 mg PO BID 30 Days #60 cap 09/18/19 04/20/20 Unknown oxycodone 5 mg PO Q4H PRN #30 tab 09/18/19 04/20/20 Unknown omeprazole magnesium [Prilosec OTC] 20 mg PO DAILY PRN 04/20/20 04/20/20 Unknown Past Medical History Medical History Acid reflux occasional Anxiety and depression Degenerative disc disease Exercise-induced asthma controlled Fatty liver High cholesterol HTN (hypertension) Irregular heart beat ?PVC's, sinus arrhythmia on 10/17/18 EKG Morbid obesity PONV (postoperative nausea and vomiting) Sleep apnea CPAP Past Family History Family History Other Family history of diabetes mellitus in brother Heart disease Past Surgical History Surgical History History of cardiac cath 10/2018- angiographically normal arteries History of colonoscopy History of elbow surgery TENNIS ELBOW/ RIGHT History of knee replacement procedure of left knee Social History Smoking Status: Former smoker tobacco type: cigarettes Do You Dip or Chew Tobacco: No Smoking End Date: age 30 Hx Alcohol Use: Yes Alcohol type: wine alcohol intake frequency: a few times a week Hx Substance Use: No substance use type: does not use Testing Laboratory Results Blood Type A Positive 04/22/20 08:24 Antibody Screen NEGATIVE 04/22/20 08:24 Laboratory Tests 04/22/20 04/22/20 04/22/20 08:23 08:23 08:23 WBC 5.05 Hgb 14.2 Hct 41.7 Plt Count 224 PT INR APTT Sodium 140 Potassium 3.9 Chloride 107 Carbon Dioxide 27 BUN 13 Creatinine 0.78 Glucose 102 H Hemoglobin A1c 5.2 04/22/20 08:23 WBC Hgb Hct Plt Count PT 9.8 INR 1.0 APTT 23.2 Sodium Potassium Chloride Carbon Dioxide BUN Creatinine Glucose Hemoglobin A1c 04/22/2020 = UA: Negative Electrocardiogram Date: 04/22/20 Findings: + NSR @ (73 bpm) Possible left atrial enlargement. Incomplete right bundle branch block. Nonspecific ST abnormality. When compared to EKG from October 17, 2018no significant changes found per cardio. Chest X-Ray Date: 04/22/20 Minimal opacities within the retroxiphoid portion of the chest as visualized on the lateral viewfindings are likely atelectatic. Otherwise negative chest Stress Test Date: 10/17/18 Type: DSE Ischemic DSE. Normal baseline EKGno arrhythmias noted with stress. Inducible HK of basal and mid inferior wall at target heart rate. 95% MPHR. Mild cLVH. EF 60-65%. Maximum 1.5mm segment depression in inferior lead. 1mm ST segment depression in lateral lead. Chest discomfort and shortness of breath were reproduced to target heart rate. Moderate mitral annular calcifications. Subsequent cardiac cath 10/17/18 with normal coronary arteries* Cardiac Catheterization Date: 10/17/18 [id number] to 70%, no wall motion normalities. Angiographically normal coronary arteries. Mildly elevated intracardiac filling pressures. Normal LV systolic function Recommendations: Continued ASCVD risk factor modification. Further evaluation for noncardiac causes of chest pain per Dr. Knowles.
--- NOTE | 2020-05-12 18:43 | History & Physical Report ---
Date of Service May 12, 2020 Assessment & Plan (1) Primary osteoarthritis of right knee: Treatment options discussed. She has failed conservative measures as above. Risks, benefits and alternatives to surgery including but not limited to infection, DVT, pain, stiffness, need for revision surgery, damage to blood vessels, damage to nerves, PE, , were discussed with the patient and they wish to proceed. Will plan on ASA 81mg BID x 1 mo post op for DVT prophylaxis and OPPT post discharge. All questions answered. F/u post operatively. History of Present Illness Chief Complaint: Right knee pain Primary Care Provider: Leander Nuñez MD Patient is a 55 year old female with PMHx significant for HTN, high cholesterol, CARLA, previous left TKA who presents with long standing right knee pain. Pain interferes with her ability to carry out normal daily activity. She has failed conservative measures including cortisone injections, viscosupplementation, and NSAIDs. She would like to proceed with knee replacement. Patient denies headaches, sweats, fevers, chills, double vision, blurred vision, cough, sore throat, dysphagia, chest pain, sob, wheezing, n/v/d/c, numbness, tingling, fatigue, urinary symptoms, mood disorders. ROS positive for right knee pain and stiffness. Allergies Allergy/AdvReac Type Severity Reaction Status Date / Time adhesive Allergy Unknown SKIN Verified 04/20/20 12:25 IRRITATION, RASH, TEARS SKIN latex Allergy Unknown SKIN Verified 04/20/20 12:25 IRRITATION, RASH, TEARS SKIN Home Medications Medication Instructions Recorded Confirmed Type escitalopram oxalate [Lexapro] 10 mg PO QAM 10/16/18 04/20/20 History albuterol sulfate [ProAir HFA] 1 - 2 inh INHALATION UD PRN 08/06/19 04/20/20 History cholecalciferol (vitamin D3) 50 mcg PO Q2D 08/06/19 04/20/20 History [Vitamin D3] lidocaine 1 patch TOPICAL UD PRN 08/06/19 04/20/20 History hydrochlorothiazide 12.5 mg PO QAM 09/17/19 04/20/20 History losartan 50 mg PO QAM 09/17/19 04/20/20 History celecoxib [Celebrex] 200 mg PO BID 30 Days #60 cap 09/18/19 04/20/20 Rx oxycodone 5 mg PO Q4H PRN #30 tab 09/18/19 04/20/20 Rx omeprazole magnesium [Prilosec OTC] 20 mg PO DAILY PRN 04/20/20 04/20/20 History Past Med/Surg History Medical History Acid reflux occasional Anxiety and depression Degenerative disc disease Exercise-induced asthma controlled Fatty liver High cholesterol HTN (hypertension) Irregular heart beat ?PVC's, sinus arrhythmia on 10/17/18 EKG Morbid obesity PONV (postoperative nausea and vomiting) Sleep apnea CPAP Surgical History History of cardiac cath 10/2018- angiographically normal arteries History of colonoscopy History of elbow surgery TENNIS ELBOW/ RIGHT History of knee replacement procedure of left knee Family History Other Family history of diabetes mellitus in brother Heart disease Social History Smoking Status: Former smoker Smoking End Date: age 30; Second Hand Exposure: No; Do You Dip or Chew Tobacco: No; Tobacco Cessation Education Requested by Patient: No Hx Alcohol Use: Yes Alcohol type: wine Hx Substance Use: No Preferred Language: Croatian Communication Ability: Effective Ambulance Attendant Required: No Beliefs That Will Affect Care: None Current Living Situation: Spouse Other Information That Helps Us Care for You: No Feels Safe at Home: Yes Safety Concerns: Feels Safe At This Time Assistive Devices: CPAP Review of Systems All systems reviewed & are unremarkable except as noted in HPI & below Physical Exam Constitutional: well developed and well nourished; no acute distress Eyes: PERRL, conjunctivae normal, anicteric sclerae ENMT: external ear and nose normal, oropharynx normal Neck: trachea midline, no thyromegaly Respiratory: normal respiratory effort, lungs clear to auscultation Cardiovascular: RRR, no murmur, no edema Musculoskeletal: Right knee: Varus alignment. Mild effusion. Medial joint line tenderness. Moderate crepitation with ROM. ROM is 0-125 degrees. Positive Amanda's, stable to valgus and varus stress. Skin: no rashes, warm and dry Neurologic: patellar DTR's 2+ bilat, sensation intact Psychiatric: A+Ox3, euthymic affect Results & Data ([facility]) Laboratory Results Lab Results 04/22/20 Range/Units 08:24 Blood Type A Positive Antibody Screen NEGATIVE Diagnostic Findings Right knee: Significant joint space narrowing medial compartment with osteophyte formation in all 3 compartments.
[2020-05-13] MEDS ORDERED: LR 500ML BOLUS, THEN 15ML/HR IV SCH (06:00)
[2020-05-13] MEDS ORDERED: ROPIVACAINE 0.5% HCL/PF 150 MG, BUPIVACAINE 0.75% MPF 20 ML, EPINEPHrine 30MG/30ML (OR ... INSTIL SCH (06:00)
[2020-05-13] MEDS ORDERED: ACETAMINOPHEN 500 MG TAB PO SCH (06:00)
[2020-05-13] MEDS ORDERED: ceFAZolin 2000MG 2,000 MG/15 ML SYR IV SCH (06:00)
[2020-05-13] MEDS ORDERED: GABAPENTIN 900 MG DOSE PO SCH (06:00)
[2020-05-13] MEDS ORDERED: METOCLOPRAMIDE HCL 10 MG TABLET PO SCH (06:00)
[2020-05-13] MEDS ORDERED: TRANEXAMIC ACID 1,000 MG **IV Intra-op IV SCH (06:00)
[2020-05-13] MEDS ORDERED: dexAMETHasone 4 MG TAB PO SCH (06:00)
[2020-05-13] MEDS ORDERED: CeleBREX 200 MG CAP PO SCH (06:00)
[2020-05-13] MEDS ORDERED: FAMOTIDINE 20 MG TAB PO SCH (06:00)
[2020-05-13] MEDS ORDERED: TRANEXAMIC ACID 1,000 MG **IV Pre-op IV SCH (06:00)
[2020-05-13] MEDS ORDERED: BUPIVACAINE 0.5 % 5 MG/1 ML PF 10ML VIAL ONE (06:29)
[2020-05-13] MEDS ORDERED: EPINEPHrine INJ 1 MG/ML AMP ONE (06:29)
[2020-05-13] MEDS ORDERED: ROPIVACAINE 0.5% 5 MG/ML 30 ML VIAL ONE (06:30)
[2020-05-13] MEDS ORDERED: PROPOFOL IV EMULSION 10 MG/ML 20 ML VIAL IV ONE ×3 (06:39→09:18)
[2020-05-13] MEDS ORDERED: MIDAZOLAM HCL 1 MG/ML 2ML VIAL ONE (06:39)
[2020-05-13] MEDS ORDERED: BACITRACIN INJ 50,000 UNIT VIAL ONE (06:44)
[2020-05-13] MEDS ORDERED: ORTHO JOINT ANESTHETIC ONE (06:44)
[2020-05-13] MEDS ORDERED: ATROPINE SULFATE 0.1 MG/ML 10ML SYR IV PRN (06:57)
[2020-05-13] MEDS ORDERED: ONDANSETRON INJ 2 MG/ML 2 ML VIAL IV PRN ×2 (06:57→10:43)
[2020-05-13] MEDS ORDERED: fentaNYL citrate 100 MCG/2 ML VIAL IV PRN (06:57)
[2020-05-13] MEDS ORDERED: ePHEDrine sulfate 50 MG/ML AMP IV PRN (06:57)
[2020-05-13] MEDS ORDERED: HYDROmorphone INJ 1 MG/ML SYRINGE IV PRN (06:57)
[2020-05-13] MEDS ORDERED: fentaNYL citrate 100 MCG/2 ML VIAL ONE (07:00)
[2020-05-13] MEDS ORDERED: KETAMINE 50 MG/5 ML SYRINGE ONE (07:00)
[2020-05-13] MEDS ORDERED: ONDANSETRON INJ 2 MG/ML 2 ML VIAL ONE (07:01)
--- NOTE | 2020-05-13 07:13 | History & Physical Bridge Note ---
Date of Service May 13, 2020 History & Physical Bridge Note I have examined the patient, reviewed the History & Physical and in the interval since the performance of the History & Physical I have noted the following changes of clinical significance: no changes noted
[2020-05-13] MEDS ORDERED: GLYCOPYRROLATE 0.2 MG/ML VIAL ONE (08:00)
[2020-05-13] MEDS ORDERED: DEXAMETHASONE SOD INJ 4 MG/ML VIAL ONE (08:08)
--- NOTE | 2020-05-13 09:44 | Post Operative Brief Note ---
Immediate Post Op Note v1 Date of Surgery May 13, 2020 Pre & Post Diagnosis Operation Date: 05/13/20 07:00 Pre-Op Diagnosis: Right Knee Primary Osteoarthritis obesity BMI 45.6 Post-Op Diagnosis: Right Knee Primary Osteoarthritis obesity BMI 45.6 I identified the patient and participated in the time-out.: Yes Procedure Operation Date: 05/13/20 07:00 Actual Procedures p Right Total Knee Arthroplasty(Right) increased difficulty morbid obesity BMI 45.6- Neil Simpson MD Surgeon Neil Simpson MD [employer] Driver Sarbjit CULP Estimated Blood Loss 5 Findings Consistent with Post-Op Diagnosis Specimens Bone cuts Drains Hemovac Drain Anesthesia Type MAC Spinal Regional Complications none Disposition Accompanied Patient To Recovery: No Disposition: Recovery Room Overlapping Procedure I was immediately available: during the entire case.
--- NOTE | 2020-05-13 10:03 | Operative Report ---
Post Operative Report Pre & Post Diagnosis Operation Date: 05/13/20 07:00 Pre-Op Diagnosis: Right Knee Primary Osteoarthritis, morbid obesity BMI 45.6 Post-Op Diagnosis: Right Knee Primary Osteoarthritis, morbid obesity BMI 45.6 I identified the patient and participated in the time-out.: Yes Procedure Operation Date: 05/13/20 07:00 Actual Procedures p Right Total Knee Arthroplasty, increased difficulty morbid obesity BMI 45.6- Neil Simpson MD Surgeon Neil Simpson MD Animal Physiology Teacher Sarbjit CULP Estimated Blood Loss 5 Findings Consistent with Post-Op Diagnosis Specimens Bone cuts Drains 2 Hemovac Anesthesia Type MAC Spinal Regional Complications none Disposition Accompanied Patient To Recovery: No Disposition: Recovery Room Indications 55-year-old female with chronic progressive osteoarthritis right knee failed conservative management. Patient had recent successful left knee replacement doing well with that. Description of Procedure Patient was taken to the operating room placed supine on the operating table and anesthetized under spinal MAC regional anesthesia. Exam under anesthesia demonstrated 0 through 120 degrees range of motion with a varus knee and an obese leg with significant thigh obesity. A pneumatic tourniquet was placed about the thigh of the right lower extremity. The right lower extremity was prepped and draped in usual fashion. The leg was elevated exsanguinated with an Esmarch bandage and the pneumatic was raised to 350 mm mercury. An anterior incision was made across the right knee. The skin was incised longitudinally subcutaneous flaps were elevated and an incision was made through the medial retinaculum extending up into the mid third of the quadriceps tendon and extended down to the medial tibial tubercle. Intra-articular findings demonstrated osteoarthritis medial compartment and patellofemoral joint. Patient had anteromedial [id number] medial compartment and grade 3 patellofemoral OA. Patient has some synovitis some it was red and inflamed. There was a medial meniscus tear. The knee was exposed by excising the infrapatellar fat pad, excising the meniscal remnants and anterior cruciate ligament. The inflamed synovial tissue in this supra patellar region was resected. The fat pad over the anterior femur was resected for placement of the component in that area. The lateral synovial bands were release. The femur was exposed. The custom femoral cutting block was pinned in position. The distal femoral cutting block was applied. The distal femoral cut was made with the oscillating saw. The size 8, 4-in-1 cutting block was placed. The anterior and posterior chamfer cuts were made. The knee was extended and a subperiosteal peel lateral release was performed around the patella. The patella width was measured and width was reproduced using freehand cut technique. The 35 x 9 millimeter symmetrical patella was used. 3 drill holes are made for the pegs. The tibia was exposed. A custom tibial cutting block was positioned and drill holes were made for the cutting guide. Cutting guide was placed and the proxim al cut was made with the oscillating saw. All osteophytes were resected. The lamina film splicer was used to assess ligamentous balance and the ligaments were balanced in extension and flexion. The tibia was reexposed and measured for a size E tibial component. This was externally rotated in line with the tibial tubercle and the fixation pins were drilled. The proximal tibia was fashioned with the drill and punch. The size 8 CR femoral trial was inserted. The trial MC inserts were used. The 10 mm insert gave balanced ligaments through full range of motion. The patella tracked centrally. the trials were removed. The orthomix anesthetic cocktail was injected per protocol. The knee was then copiously irrigated with pulsatile lavage antibiotic solution with bacitracin. The final components were cemented with Simplex cement. The final components were persona Rc Biomet size 8 CR standard right femur, E tibia, 10 MC tibial polyethylene, 35 x 9 symmetrical patella. After the cement cured with the knee in full extension the Betadine soak was used per protocol. The knee joint was copiously irrigated with antibiotic solution with bacitracin. 2 drains were brought out laterally and connected to a Hemovac. The quadriceps tendon and medial retinaculum were closed with interrupted [id number] #1 Vicryl sutures. The knee was taken through a full range of motion and repair was secure. The subcutaneous tissues were closed with 2-0 Vicryl sutures and skin was closed with carlos. Sterile dressings were applied and the patient tolerated the procedure well. Sarbjit CULP my physician high school assistant football coach, assisted in soft tissue retraction instrument management leg positioning the closure and will participate in the postoperative care of the patient. I attest to the content of the Intraoperative Record and any orders documented therein. Any exceptions are noted below.
--- NOTE | 2020-05-13 10:13 | XRay Report ---
XR knee RT 1 or 2V routine CLINICAL HISTORY: Postoperative evaluation. COMPARISON: None FINDINGS: Alignment of the total right knee arthroplasty is anatomic. There is no periprosthetic fra cture or unexpected radiopaque foreign body. There are drains and skin carlos. IMPRESSION: Expected findings following total right knee arthroplasty. ACT 112: Negative or not required by law. Electronically signed by: Kolton Lipscomb M.D. 05/13/2020 10:12 AM
--- NOTE | 2020-05-13 10:15 | Anesthesiology Progress Note ---
Date of Service May 13, 2020 Anesthesia Post Procedure Vital Signs Vital Signs: Temp Pulse Pulse Resp BP BP Pulse Ox 05/13/20 10:10 36.5 C 75 18 112/68 93 05/13/20 10:00 81 18 116/68 95 05/13/20 09:50 84 20 101/58 L 97 05/13/20 09:41 36.7 C 95 H 18 109/59 L 97 05/13/20 05:47 36.6 C 69 20 127/93 97 Transfer of Care Handoff Completed per policy Notes Mental Status: alert / awake / arousable and participated in evaluation Patient Amnestic to Procedure: Yes Nausea / Vomiting: adequately controlled Pain: adequately controlled Airway Patency, RR, SpO2: stable & adequate BP & HR: stable & adequate Hydration State: stable & adequate Neuraxial Anesthesia: was administered and sensory block is resolving Anesthetic Complications: no major complications apparent and Pt Satisfied with anesthetic care
[2020-05-13] MEDS ORDERED: HYDROmorphone INJ 0.5 MG/0.5 ML SYR IV PRN (10:43)
[2020-05-13] MEDS ORDERED: bisacodyL 10 MG SUPP PR PRN (10:43)
[2020-05-13] MEDS ORDERED: MAGNESIUM HYDROXIDE SUSP 30 ML UDC PO PRN (10:43)
[2020-05-13] MEDS ORDERED: NALOXONE HCL 0.4 MG/1 ML VIAL/CARP IV PRN (10:43)
[2020-05-13] MEDS ORDERED: METOCLOPRAMIDE HCL INJ 5 MG/ML 2 ML VIAL IV PRN (10:43)
[2020-05-13] MEDS ORDERED: PANTOprazole 40 MG TAB PO PRN (10:53)
[2020-05-13] MEDS ORDERED: ALBUTEROL HFA 8 GM INHALER INH PRN (10:54)
--- NOTE | 2020-05-13 13:12 | Consultation ---
Date of Consultation May 13, 2020 Assessment & Plan (1) Primary osteoarthritis of right knee: S/P R TKA POD #[address] Simpson EBL 5ml tolerated procedure well Pain/wound management per ortho encourage incentive spirometry diet, activity and therapy per ortho monitor H&H; pre op 14.2 (2) HTN (hypertension): BP 113/75 hold losartan/hctz until reassessed in am. resume as able (3) Anxiety and depression: mood stable continue lexapro (4) Sleep apnea: Cpap at HS (5) DVT prophylaxis: ASA BID per ortho Dispo: med surg; per primary PCP: [place] Full Code Pt was seen and examined in collaboration with Dr. Collins, please see addendum Thank you for this consultation. We will follow the patient with you during their hospital stay. You can reach a member of the [facility] Hospitalist Team 28/08 via [email or web address] hospitalist role. Supervising Physician Co-Signing Physician Notes Patient is a 55-year-old female with history of hypertension, hyperlipidemia, obstructive sleep apnea and other medical problems was seen and examined postop after having right knee arthroplasty by . Patient is doing well postop. Denies any significant pain at surgical site. Also denies any chest pain, shortness of breath, dizziness, nausea, abdominal pain, tingling or numbness in feet. On exam patient is obese, no apparent distress, normocephalic atraumatic, lungs are clear to auscultation, S1-S2, no murmur, no pedal edema, abdomen soft, nontender, bowel sounds. Right knee surgical site in dressing, alert, awake, oriented, grossly no focal neurologic deficits. S/P right total knee arthroplasty. Monitor for postop anemia. Pain control, wound care, activity as per primary team. Continue incentive spirometry. Bowel regimen to prevent constipation. DVT prophylaxis per orthopedics. Resume losartan, HCTZ as able. Continue Lexapro for mood disorder. Continue CPAP at bedtime. Morbid obesity-BMI 45. I personally reviewed the record. Patient is interviewed and examined at bedside. Patient's care is coordinated with Nusrat Sawyer PA-C. Please refer to the documentation above for details of patient's presentation and for discussion of other issues. History of Present Illness Requesting Physician: Dr. Simpson Reason for Consultation: Postop medical management Attending Physician: Neil Simpson MD History of Present Illness This is a 55-year-old female who has significant past medical history of HTN, HLD, depression with anxiety, GERD, RLS who presents for elective R knee replacement by Dr. Simpson. She is doing well postoperatively and offers no complaints. She denies any fever, chills, sweats, lightheadedness, dizziness, chest pain, shortness of breath, nausea, vomiting, abdominal pain. She tolerated her lunch without difficulty. She admits to starting to feel sensation to right lower extremity and able to move. Of significance she has history of HTN controlled on hydrochlorothiazide and losartan. She also has history of depression with anxiety controlled on Lexapro. She has a former history of smoking quit in the early . Allergies Allergy/AdvReac Type Severity Reaction Status Date / Time adhesive Allergy Unknown SKIN Verified 05/13/20 05:37 IRRITATION, RASH, TEARS SKIN latex Allergy Unknown SKIN Verified 05/13/20 05:37 IRRITATION, RASH, TEARS SKIN Home Medications Medication Instructions Recorded Confirmed Type escitalopram oxalate [Lexapro] 10 mg PO QAM 10/16/18 05/13/20 History albuterol sulfate [ProAir HFA] 1 - 2 inh INHALATION UD PRN 08/06/19 05/13/20 History cholecalciferol (vitamin D3) 50 mcg PO Q2D 08/06/19 05/13/20 History [Vitamin D3] lidocaine 1 patch TOPICAL UD PRN 08/06/19 05/13/20 History hydrochlorothiazide 12.5 mg PO QAM 09/17/19 05/13/20 History losartan 50 mg PO QAM 09/17/19 05/13/20 History celecoxib [Celebrex] 200 mg PO BID 30 Days #60 cap 09/18/19 05/13/20 Rx oxycodone 5 mg PO Q4H PRN #30 tab 09/18/19 05/13/20 Rx omeprazole magnesium [Prilosec OTC] 20 mg PO DAILY PRN 04/20/20 05/13/20 History Patient History Medical History (Updated 05/13/20 @ 13:27 by Nusrat Sawyer PA-C) Acid reflux occasional Anxiety and depression Degenerative disc disease Exercise-induced asthma controlled Fatty liver High cholesterol HTN (hypertension) Irregular heart beat ?PVC's, sinus arrhythmia on 10/17/18 EKG Morbid obesity PONV (postoperative nausea and vomiting) Sleep apnea CPAP Surgical History History of cardiac cath 10/2018- angiographically normal arteries History of colonoscopy History of elbow surgery TENNIS ELBOW/ RIGHT History of knee replacement procedure of left knee Family History Father , 77 Heart disease Other Family history of diabetes mellitus in brother Social History Smoking Status: Former smoker Smoking End Date: age 30; Second Hand Exposure: No; Do You Dip or Chew Tobacco: No; Tobacco Cessation Education Requested by Patient: No Hx Alcohol Use: Yes Alcohol type: wine Hx Substance Use: No Preferred Language: Sami Communication Ability: Effective Getter Welder Required: No Beliefs That Will Affect Care: None Current Living Situation: Spouse Other Information That Helps Us Care for You: No Feels Safe at Home: Yes Safety Concerns: Feels Safe At This Time Assistive Devices: CPAP, Glasses and Walker Review of Systems Review of Systems: All systems reviewed & are unremarkable except as noted in HPI & below Physical Exam Physical Exam: Constitutional: WD/WN, vitals as above, NAD, sitting up in bed, pleasant, conversing easily Head: Normocephalic, Atraumatic Eyes: PERRL, conjunctivae normal, anicteric sclerae ENMT: external ear and nose normal, oropharynx normal Neck: trachea midline, no thyromegaly normal visual inspection Respiratory: normal respiratory effort, lungs clear to auscultation, no wheeze, rales, rhonchi. Normal insp/exp effort, no accessory muscle use Cardiovascular: RRR, no murmur, no edema Vessels: no JVD or carotid bruit Chest: normal inspection of chest Abdomen: normal bowel sounds, soft, nontender, no hepatosplenomegaly Musculoskeletal: no cyanosis or clubbing, Upper extremities motor strength 5/5, lower not assessed 2/2 to anesthesia. RLE dressing CDI, hemovac in place NVI distally Skin: no rashes, warm and dry normal turgor Neurologic: PERRL, EOMI, accommodation nl, no face palsy, no dysarthria CN's II-XI intact bilaterally and moves all extremities Psychiatric: A+Ox3, euthymic affect Lymphatic: no cervical or axillary lymphadenopathy : deferred Results & Data ([facility]) Vital Signs (Past 12 Hours) Vital Signs Temp Pulse Pulse Pulse Resp BP BP 05/13/20 12:52 37 C 88 16 113/75 05/13/20 11:45 84 16 120/81 05/13/20 11:10 86 16 119/76 05/13/20 10:40 36.4 C L 74 18 114/74 05/13/20 10:20 72 18 119/82 05/13/20 10:10 36.5 C 75 18 112/68 05/13/20 10:00 81 18 116/68 05/13/20 09:50 84 20 101/58 L 05/13/20 09:41 36.7 C 95 H 18 109/59 L 05/13/20 05:47 36.6 C 69 20 127/93 Pulse Ox 05/13/20 12:52 93 05/13/20 11:45 93 05/13/20 11:10 94 05/13/20 10:40 95 05/13/20 10:20 95 05/13/20 10:10 93 05/13/20 10:00 95 05/13/20 09:50 97 05/13/20 09:41 97 05/13/20 05:47 97 Laboratory Results Preop labs 04/22/2020 hemoglobin 14.2, hematocrit 41.7, platelet 224, BUN 13, creatinine 0.78, glucose 102, urinalysis negative, SARS-CoV-2 negative Diagnostic Findings Knee X-Ray 05/13/20 09:52 XR knee RT 1 or 2V routine CLINICAL HISTORY: Postoperative evaluation. COMPARISON: None FINDINGS: Alignment of the total right knee arthroplasty is anatomic. There is no periprosthetic fracture or unexpected radiopaque foreign body. There are drains and skin carlos. IMPRESSION: Expected findings following total right knee arthroplasty. ACT 112: Negative or not required by law. Electronically signed by: Kolton Lipscomb M.D. 05/13/2020 10:12 AM Medications Administered Acetaminophen (Acetaminophen 500 Mg Tab) 1,000 mg PO PREOP NERY Stop: 05/13/20 18:00 Last Admin: 05/13/20 05:58 Dose: 1,000 mg Documented by: [id number] Celecoxib (Celebrex 200 Mg Cap) 200 mg PO PREOP NERY Stop: 05/13/20 18:00 Last Admin: 05/13/20 06:03 Dose: Not Given Documented by: [id number] Dexamethasone (Dexamethasone 4 Mg Tab) 8 mg PO PREOP NERY Stop: 05/13/20 18:00 Last Admin: 05/13/20 05:59 Dose: 8 mg Documented by: [id number] Famotidine (Famotidine 20 Mg Tab) 20 mg PO PREOP NERY Stop: 05/13/20 18:00 Last Admin: 05/13/20 05:59 Dose: 20 mg Documented by: [id number] Gabapentin (Gabapentin 900 Mg Dose) 900 mg PO PREOP NERY Stop: 05/13/20 18:00 Last Admin: 05/13/20 05:59 Dose: 900 mg Documented by: [id number] Lactated Ringer's (Lr) 1,000 mls @ 15 mls/hr IV .Q24H NERY Stop: 05/14/20 05:59 Last Infusion: 05/13/20 07:36 Dose: 0 mls/hr Documented by: [id number] Admin: 05/13/20 05:45 Dose: 15 mls/hr Documented by: [id number] Cefazolin Sodium (Ancef 2000mg) 2,000 mg in 15 mls @ 3.75 mls/min IV PREOP NERY; Protocol Stop: 05/13/20 18:00 Last Admin: 05/13/20 07:36 Dose: 3.75 mls/min Documented by: [id number] Tranexamic Acid (Tranexamic Acid / 0.7% Nacl) 1,000 mg in 100 mls @ 600 mls/hr IV TODAY@0600 NERY Stop: 05/13/20 18:00 Last Infusion: 05/13/20 07:26 Dose: 0 mls/hr Documented by: [id number] Admin: 05/13/20 07:15 Dose: 600 mls/hr Documented by: [id number] Tranexamic Acid (Tranexamic Acid / 0.7% Nacl) 1,000 mg in 100 mls @ 600 mls/hr IV TODAY@0600 [facility] Stop: 05/13/20 18:00 Last Infusion: 05/13/20 09:29 Dose: 0 mls/hr Documented by: [id number] Admin: 05/13/20 09:19 Dose: 600 mls/hr Documented by: [id number] Metoclopramide HCl (Metoclopramide Hcl 10 Mg Tablet) 10 mg PO PREOP NERY Stop: 05/13/20 18:00 Last Admin: 05/13/20 05:58 Dose: 10 mg Documented by: [id number] Discontinued Medications Bacitracin (Bacitracin Inj 50,000 Unit Vial) Confirm Administered Dose 50,000 units .ROUTE .STK-MED ONE Stop: 05/13/20 06:45 Last Admin: 05/13/20 08:54 Dose: 50,000 units Documented by: [id number] Ropivacaine 150 mg/Bupivacaine HCl 20 ml/Epinephrine HCl 0.15 mg/Ketorolac Tromethamine 30 mg/Dexamethasone 4 mg/ Ketamine HCl 10 mg/ Clonidine HCl 100 mcg/ Sodium Chloride 88.35 mls @ 0 mls/hr INSTIL TODAY@0600 [facility]; Protocol Stop: 05/13/20 06:01 Last Admin: 05/13/20 08:54 Dose: 93.35 mls/hr Documented by: [id number] Miscellaneous (Ortho Joint Anesthetic ) Confirm Administered Dose 1 ea .ROUTE .STK-MED ONE Stop: 05/13/20 06:45 Last Admin: 05/13/20 08:18 Dose: 1 ea Documented by: [id number] ECG Rate (beats per minute): 73 Rhythm: normal sinus Findings: + RBBB
[2020-05-13] MEDS: SODIUM CHLORIDE 0.9% 1000ML 1,000 ML IV SCH (15:21)
[2020-05-13] MEDS: ACETAMINOPHEN 500 MG TAB PO SCH ×2 (15:21→21:12)
[2020-05-13] MEDS: ceFAZolin 2000MG 2,000 MG/15 ML SYR IV SCH (16:45)
[2020-05-13] MEDS: oxyCODONE HCL IR 5 MG TAB (IMMEDIATE RELEASE) PO PRN (18:55)
[2020-05-13] MEDS ORDERED: SENNA 8.6 MG TAB PO SCH (21:00)
[2020-05-13] MEDS: DOCUSATE SODIUM 100 MG CAP PO SCH (21:09)
[2020-05-13] MEDS: CeleBREX 200 MG CAP PO SCH (21:10)
[2020-05-13] MEDS: ASPIRIN 81 MG ECTAB PO SCH (21:11)
[2020-05-14] MEDS: ceFAZolin 2000MG 2,000 MG/15 ML SYR IV SCH (00:06)
[2020-05-14] MEDS: SODIUM CHLORIDE 0.9% 1000ML 1,000 ML IV SCH (00:06)
[2020-05-14] MEDS: oxyCODONE HCL IR 5 MG TAB (IMMEDIATE RELEASE) PO PRN ×2 (03:32→08:41)
[2020-05-14] MEDS: ACETAMINOPHEN 500 MG TAB PO SCH ×2 (05:41→15:37)
[2020-05-14 06:27] LABS: Hematocrit (blood only) 35.5 % (37-47); Hemoglobin 12.5 g/dL (12.0-16.0); Mean Corpuscular Hemoglobin 31.3 pg (25-34); Mean Corpuscular Hgb Conc 35.2 g/dL (32-36); Mean Corpuscular Volume 88.8 fL (80-100); Platelet Count 216 K/uL (130-400); RDW Coefficient of Variation 12.8 % (11.5-14.5); RDW Standard Deviation 41.1 fL (36.4-46.3); White Blood Count 10.34 K/uL (4.8-10.8)
[2020-05-14 06:51] LABS: BUN Creatinine Ratio 22.5 (10-20); Calcium 8.7 mg/dl (8.5-10.1); Creatinine Clr Calc Pharmacy 134.9 ml/min; Est GFR (African American) 119.1; Est GFR (Non-African American) 102.8; Magnesium 2.1 mg/dl (1.8-2.4); Potassium 3.9 mmol/L (3.5-5.1)
--- NOTE | 2020-05-14 07:15 | Orthopedic Progress Note ---
Date of Service May 14, 2020 Assessment & Plan (1) Status post total right knee replacement: POD#1 Right TKA -PT/OT -Pain management -DVT prophylaxis-ASA 81mg BID, SCDs, TEDs -AM labs-hemoglobin 12.5 this am from 14.2 preop. -D/C planning-plan on d/c home today possibly today as long as PT goes well and depending on hemovac output. Admission and Anticipated Discharge Date Admission Date: May 13, 2020 Subjective POD#1 right TKA. Doing well this morning, some pain but well controlled. No complaints. Denies chest pain, sob, dizziness, headache, fever, chills. Review of Systems Constitutional: as per Subjective / HPI Physical Exam Physical Exam: Right knee dressing is c/d/i. Hemovac in place. No calf tenderness, calves soft. Toes mobile with good dorsiflexion. Distally n/v status and sensation are intact. Constitutional: well developed and well nourished; no acute distress Results & Data ([facility]) Vital Signs (Past 12 Hours) Vital Signs Temp Pulse Resp BP Pulse Ox 05/14/20 06:16 36.5 C 62 16 116/77 95 05/14/20 02:47 36.5 C 69 16 128/86 97 05/13/20 21:54 37.0 C 79 18 103/63 94 05/13/20 19:20 36.9 C 94 H 18 148/73 H 93 Laboratory Results H & H 05/14/20 Range/Units 05:37 Hgb 12.5 (12.0-16.0) g/dL Hct 35.5 L (37-47) %
[2020-05-14] MEDS: CeleBREX 200 MG CAP PO SCH (08:36)
[2020-05-14] MEDS: ASPIRIN 81 MG ECTAB PO SCH (08:36)
[2020-05-14] MEDS: DOCUSATE SODIUM 100 MG CAP PO SCH (08:38)
--- NOTE | 2020-05-14 08:51 | Anesthesiology Progress Note ---
Date of Service May 14, 2020 Anesthesia Post Procedure Vital Signs Vital Signs: Temp Pulse Pulse Resp BP Pulse Ox 05/14/20 06:16 36.5 C 62 16 116/77 95 05/14/20 02:47 36.5 C 69 16 128/86 97 05/13/20 21:54 37.0 C 79 18 103/63 94 05/13/20 19:20 36.9 C 94 H 18 148/73 H 93 05/13/20 15:14 36.6 C 90 16 144/79 H 94 05/13/20 13:59 36.8 C 83 18 116/76 05/13/20 12:52 37 C 88 16 113/75 93 05/13/20 11:45 84 16 120/81 93 05/13/20 11:10 86 16 119/76 94 05/13/20 10:40 36.4 C L 74 18 114/74 95 05/13/20 10:20 72 18 119/82 95 05/13/20 10:10 36.5 C 75 18 112/68 93 05/13/20 10:00 81 18 116/68 95 05/13/20 09:50 84 20 101/58 L 97 05/13/20 09:41 36.7 C 95 H 18 109/59 L 97 Pain Intensity Right Knee: Pain Intensity: 5 Notes Mental Status: alert / awake / arousable and participated in evaluation Patient Amnestic to Procedure: Yes Nausea / Vomiting: adequately controlled Pain: adequately controlled Airway Patency, RR, SpO2: stable & adequate BP & HR: stable & adequate Hydration State: stable & adequate Neuraxial Anesthesia: was administered and sensory block resolved Anesthetic Complications: no major complications apparent
[2020-05-14] MEDS ORDERED: CHOLECALCIFEROL 1,000 UNITS 25 MCG TAB PO SCH (09:00)
[2020-05-14] MEDS ORDERED: hydroCHLOROthiazide 25 MG TAB PO SCH (09:00)
[2020-05-14] MEDS ORDERED: MULTIVITAMIN TAB PO SCH (09:00)
[2020-05-14] MEDS ORDERED: LOSARTAN POTASSIUM 50 MG TAB PO SCH (09:00)
[2020-05-14] MEDS ORDERED: ESCITALOPRAM OXALATE 10 MG TAB PO SCH (09:00)
--- NOTE | 2020-05-14 14:05 | Hospitalist Progress Note ---
Date of Service May 14, 2020 Assessment & Plan (1) Primary osteoarthritis of right knee: S/P R TKA POD #[address] Simpson Activity, wound care, DVT prophylaxis per ortho Continue Incentive spirometry Pain is controlled Had bowel movement Continue bowel regimen to prevent constipation Needs follow-up with orthopedics upon discharge (2) HTN (hypertension): Blood pressure stable Can resume losartan/hctz upon discharge (3) Anxiety and depression: mood stable continue lexapro (4) Sleep apnea: Cpap at HS (5) DVT prophylaxis: ASA BID per ortho Code Status Full Code Thank you for this consultation. We will follow the patient with you during their hospital stay. You can reach a member of the [facility] Hospitalist Team 28/08 via [employer] hospitalist role. Admission and Anticipated Discharge Date Admission Date: May 13, 2020 Subjective Patient is seen and examined at bedside Knee pain at surgical site is controlled States feeling well today Denies chest pain, shortness of breath, dizziness, nausea, abdominal pain Review of Systems Review of Systems: All systems reviewed & are unremarkable except as noted in HPI & below Physical Exam Physical Exam: Physical Exam: Vitals signs as noted above General Appearance:Morbidly Obese, no apparent distress Head: normocephalic, Atraumatic Eyes: normal inspection, EOMI Neck: supple, Trachea midline Respiratory/Chest: Normal breath sounds, CTA, No accessory muscle use Cardiovascular: S1, S2, No murmur Abdomen/GI:Soft, Non tender, Bowel sounds present Extremities/Musculoskelatal:normal inspection, no edema, Right Knee in dressing Neurologic/Psych:AAOX3, grossly no focal neurological deficits Skin: normal color, warm Results & Data Results & Data ([facility]) Vital Signs (Past 12 Hours) Vital Signs Temp Pulse Pulse Resp BP Pulse Ox 05/14/20 12:36 36.5 C 72 62 16 116/77 95 05/14/20 06:16 36.5 C 62 16 116/77 95 05/14/20 02:47 36.5 C 69 16 128/86 97 Laboratory Results Short CBC 05/14/20 Range/Units 05:37 WBC 10.34 (4.8-10.8) K/uL Hgb 12.5 (12.0-16.0) g/dL Hct 35.5 L (37-47) % Plt Count 216 (130-400) K/uL BMP 05/14/20 05:37 Sodium 139 Potassium 3.9 Chloride 109 H Carbon Dioxide 26 BUN 14 Creatinine 0.61 Glucose 129 H Calcium 8.7
--- NOTE | 2020-05-15 10:15 | Discharge Summary ---
Date of Service May 15, 2020 Admission HPI Per Admitting Provider Patient is a 55 year old female with PMHx significant for HTN, high cholesterol, CARLA, previous left TKA who presents with long standing right knee pain. Pain interferes with her ability to carry out normal daily activity. She has failed conservative measures including cortisone injections, viscosupplementation, and NSAIDs. She would like to proceed with knee replacement. Patient denies headaches, sweats, fevers, chills, double vision, blurred vision, cough, sore throat, dysphagia, chest pain, sob, wheezing, n/v/d/c, numbness, tingling, fatigue, urinary symptoms, mood disorders. ROS positive for right knee pain and stiffness. Admission Exam Per Admitting Provider Constitutional: well developed and well nourished; no acute distress Eyes: PERRL, conjunctivae normal, anicteric sclerae ENMT: external ear and nose normal, oropharynx normal Neck: trachea midline, no thyromegaly Respiratory: normal respiratory effort, lungs clear to auscultation Cardiovascular: RRR, no murmur, no edema Musculoskeletal: Right knee: Varus alignment. Mild effusion. Medial joint line tenderness. Moderate crepitation with ROM. ROM is 0-125 degrees. Positive Amanda's, stable to valgus and varus stress. Skin: no rashes, warm and dry Neurologic: patellar DTR's 2+ bilat, sensation intact Psychiatric: A+Ox3, euthymic affect Principal Diagnosis Right knee osteoarthritis Discharge Exam Right knee dressing is c/d/i. Hemovac in place. No calf tenderness, calves soft. Toes mobile with good dorsiflexion. Distally n/v status and sensation are intact. Constitutional well developed and well nourished; no acute distress Discharge Data Allergies Allergy/AdvReac Type Severity Reaction Status Date / Time adhesive Allergy Unknown SKIN Verified 05/13/20 05:37 IRRITATION, RASH, TEARS SKIN latex Allergy Unknown SKIN Verified 05/13/20 05:37 IRRITATION, RASH, TEARS SKIN Consultations 05/10/20 16:20 Consult Hospitalist Routine Procedures Performed Operation Date: 05/13/20 07:00 Actual Procedures p Right Total Knee Arthroplasty(Right) - Neil Simpson MD Ordered Studies 05/13/20 05:00 US - OR guided needle placemen Routine Hospital Course (1) Status post total right knee replacement: Patient presented for same day admission following right total knee arthroplasty on 05/13/20. She tolerated procedure well. The Patient had an uneventful hospital course. Post-operatively, her activity was progressed and well tolerated. They participated in PT with ambulation distance of 325feet. ROM of operative knee reached 82 degrees. Labs remained stable- lowest hemoglobin recorded: 12.5. Dr. Collins of medical service was consulted for medical management during admission. Pain controlled on oral medications. Please refer to daily progress notes and PT notes for complete details. After exam on 05/14/20, patient was felt to be stable for discharge home with plans on attending outpatient PT. Patient will f/u in the office in about 2 weeks for further evaluation including x-rays and incision check, sooner if having any issues or concerns. POD#1 Right TKA -PT/OT -Pain management -DVT prophylaxis-ASA 81mg BID, SCDs, TEDs -AM labs-hemoglobin 12.5 this am from 14.2 preop. -D/C planning-plan on d/c home today possibly today as long as PT goes well and depending on hemovac output. Lab Results 04/22/20 05/13/20 05/14/20 Range/Units 08:24 05:30 05:37 WBC (4.8-10.8) K/uL RBC (4.2-5.4) M/uL Hgb (12.0-16.0) g/dL Hct (37-47) % MCV (80-100) fL MCH (25-34) pg MCHC (32-36) g/dL RDW Std Deviation (36.4-46.3) fL RDW Coeff of [place]ore[place] (11.5-14.5) % Plt Count (130-400) K/uL MPV (7.4-10.4) fL Sodium 139 (136-145) mmol/L Potassium 3.9 (3.5-5.1) mmol/L Chloride 109 H (98-107) mmol/L Carbon Dioxide 26 (21-32) mmol/L Anion Gap 4.0 (3-11) BUN 14 (7-18) mg/dl Creatinine 0.61 (0.6-1.2) mg/dl Est Cr Clr Drug Dosing 134.9 ml/min Est GFR ( Amer) 119.1 Est GFR (Non-Af Amer) 102.8 BUN/Creatinine Ratio 22.5 H (10-20) Glucose 129 H (70-99) mg/dl Calcium 8.7 (8.5-10.1) mg/dl Magnesium 2.1 (1.8-2.4) mg/dl POC Ur Test NEG (NEG) Blood Type A Positive Antibody Screen NEGATIVE 05/14/20 Range/Units 05:37 WBC 10.34 (4.8-10.8) K/uL RBC 4.00 L (4.2-5.4) M/uL Hgb 12.5 (12.0-16.0) g/dL Hct 35.5 L (37-47) % MCV 88.8 (80-100) fL MCH 31.3 (25-34) pg MCHC 35.2 (32-36) g/dL RDW Std Deviation 41.1 (36.4-46.3) fL RDW Coeff of [place] 12.8 (11.5-14.5) % Plt Count 216 (130-400) K/uL MPV 11.0 H (7.4-10.4) fL Sodium (136-145) mmol/L Potassium (3.5-5.1) mmol/L Chloride (98-107) mmol/L Carbon Dioxide (21-32) mmol/L Anion Gap (3-11) BUN (7-18) mg/dl Creatinine (0.6-1.2) mg/dl Est Cr Clr Drug Dosing ml/min Est GFR ( Amer) Est GFR (Non-Af Amer) BUN/Creatinine Ratio (10-20) Glucose (70-99) mg/dl Calcium (8.5-10.1) mg/dl Magnesium (1.8-2.4) mg/dl POC Ur Test (NEG) Blood Type Antibody Screen Total Time Total Time Spent Total Time Spent (In Minutes): 20 Discharge Plan Discharge Items Patient Disposition: Home - Self-Care Reason For Visit: Unilateral Primary Osteoarthritsi, Right Knee Discharge Diagnosis: Right knee osteoarthritis Activity: Per Instructions section Non-emergency contact: Surgeon Call non-emergency contact if: you have any medication questions, your symptoms worsen, your pain is unusual for you, your pain is concerning for you, you have a fever, your temperature is above 101, your wound has increased redness, your wound has increased drainage and your wound pain has increased Follow-up/Referrals: Leander Nuñez MD [Primary Care Provider] - Diet: Regular Addtl Attending Provider Instructions: ACTIVITY RECOMMENDATIONS: SELF CARE INSTRUCTIONS AFTER TOTAL KNEE REPLACEMENT A. You may need to continue a physical therapy program after discharge from the hospital. There are several options available to you. Your doctor will assist you in selecting the best one for you. 1. An out-patient facility 2 to 3 times a week for therapy or home therapy. 2. Continue working on all exercises taught to you in the hospital. Your goals should be to increase bending of your knee to 90 degrees and beyond and to fully straighten your knee. B. You may progress at your own pace from walking with a walker or crutches to a cane; then to no assistive devices. C. Make walking a part of your daily routine. Be up as much as comfortable with rest periods throughout the day. Rest with leg elevation is very important. Use the ice wrap frequently for the first 3-4 weeks. D. There are no restrictions on activities. You may ride in a car, shop, participate in tin flopper and all social activities. E. Wear the long elastic stockings (MARV hose) 20 hours a day for 2 weeks after surgery. They can be removed several times a day for laundering and for a bath. F. You may shower, no tub baths until cleared by your doctor. SPECIAL CARE INSTRUCTIONS: VERY IMPORTANT TO READ AND REVIEW A. There are a few signs you need to watch for after you are home. Call [facility] if you notice any of the followin. Increased severe knee pain. Some pain is expected especially when you exercise. 2. Increased swelling in your leg or knee; pain or swelling of the calf muscle in either lower leg. 3. Any fluid drainage from the incision. 4. Shortness of breath or chest pain. B. Please call [facility] at if you have any concerns or questions about your operation or recovery. The doctor or his nurse will return your call promptly. C. You must take antibiotics before dental work, bladder, bowel or other surgery. Your doctor will provide you with a permanent care to carry describing this precaution. IMPORTANT: * REMEMBER TO TAKE ASPIRIN, 81 MG, TWICE DAILY FOR 4 WEEKS UNLESS OTHERWISE DIRECTED. THIS IS YOUR BLOOD THINNER. * HIGH RISK PATIENTS MAY BE PRESCRIBED A STRONGER BLOOD THINNER. THIS WILL BE PROVIDED AT DISCHARGE. * CALL IF INCREASED PAIN, REDNESS, DRAINAGE OR FEVER GREATER THAT 101. * WEAR MARV HOSE 20 HOURS PER DAY FOR 2 WEEKS. * You may remove your outer dressing 48 hours post operatively. After this keep incision clean and dry. Some drainage is normal for the first several days to week after surgery. If having excessive drainage or increasing drainage call the office right away. FOLLOW UP VISIT: If appointment is not already scheduled: Please call [facility] to make a follow-up appointment for 2 weeks after your surgery at . Pending Studies at Discharge: No Stand-Alone Forms: My [facility] [employer] [facility], Opioid Pain Management, Smoking Cessation Medications and DC Order Prescriptions: New aspirin 81 mg Tablet,Delayed Release (Dr/Ec) 81 mg PO BID Qty: 60 RF: 0 acetaminophen 500 mg Tablet 1,000 mg PO Q8 Qty: 60 RF: 0 oxycodone 5 mg Tablet 5 - 10 mg PO .Q4h-6h MDD 6 PRN (Reason: pain) Qty: 30 RF: 0 cefadroxil 500 mg capsule 500 mg PO BID Qty: 14 RF: 0 Continued omeprazole magnesium [Prilosec OTC] 20 mg Tablet,Delayed Release (Dr/Ec) 20 mg PO DAILY PRN (Reason: Stomach Upset) RF: 0 escitalopram oxalate [Lexapro] 10 mg Tablet 10 mg PO QAM RF: 0 cholecalciferol (vitamin D3) [Vitamin D3] 50 mcg (2,000 unit) Capsule 50 mcg PO Q2D RF: 0 lidocaine 5 % Adhesive Patch,Medicated 1 patch TOPICAL UD PRN (Reason: Pain) RF: 0 albuterol sulfate [ProAir HFA] 90 mcg/actuation Hfa Aerosol Inhaler 1 - 2 inh INHALATION UD PRN (Reason: SOB) RF: 0 losartan 50 mg tablet 50 mg PO QAM RF: 0 hydrochlorothiazide 12.5 mg tablet 12.5 mg PO QAM RF: 0 celecoxib [Celebrex] 200 mg Capsule 200 mg PO BID 30 Days Qty: 60 RF: 1 Discontinued oxycodone 5 mg Tablet 5 mg PO Q4H PRN (Reason: pain) Qty: 30 RF: 0 Discharge Orders: Discharge Order (Routine); Ordered 05/14/20 Ordered By: Alcon Costello/Other Patient Handouts: How Your Knee Works Admission Data Admit Date/Time: 05/13/20 09:52 Attending Provider: Neil Simpson Admit Provider: Neil Simpson Primary Care Provider: Leander Nuñez Other Providers: Jamey Collins Other Interventions: Discharge Summary Assessment (RN) Last Done: 05/14/20 12:36
== END 2020-05-14 17:00 | disposition home or self-care (01) | DRG 470 ==
LOC: ASU 05:18 → 3E 05:18 → OBSVTOIN 09:52